=== PATIENT | female | born 1940 | race Caucasian/White ===

== ENCOUNTER 2019-11-22 08:02 | Observation (INO) | payer MEDICARE, MEDICAID ==
[~2019-11-22] VITALS: Ht 167.6 cm; Wt 70.5 kg
--- NOTE | ~2019-11-22 | HEMODYNAMI ---
PATIENT:JETT RAMIREZ MEDICAL RECORD: [id number] : 40 LOCATION:D.MS [id number] ADMISSION DATE: 11/22/19 Generatedon:11/23/201911:22 Patient name: JETT RAMIREZ Patient #: [id number] : 1940 Date of study: 11/23/2019 Page: Of Hemodynamic Procedure Report Patient Data Patient Demographics Procedure consent was obtained First Name: JETT Gender: Female Last Name: ASHLEY : 1940 Middle Initial: BRITTA Age: 79 year(s) Patient #: [id number] Race: SSN: [id number] Additional ID: [id number] Contact details [address]: [address] [place] [address] State: [place] City: [place] Zip code: [address] Past Medical History Allergies: No known allergies Admission Admission Data Admission Date: 11/22/2019 Admission Time: 10:06 Arrival Date: 11/22/2019 Arrival Time: 10:06 Admit Source: Emergency Insurance Payor: Medicaid, department Private health insurance Room #: D.2228 [facility] #: [id number] Height (in.): 65.75 BSA: 1.79 (m2) Height (cm.): 167 BMI: 25.1 (kg/m2) Weight (lbs.): 154.32 Weight (kg.): 70 Lab Results Lab Result Date: 11/23/2019 Lab Result Time: 0:00 Biochemistry Name Units Result Min Max BUN mg/dl 16 --(---*)-- 7 18 Creatinine mg/dl 1.1 --(--*-)-- 0.6 1.3 eGFR ml/min 46 *-(----)-- 90 120 NONAFRICAN CBC Name Units Result Min Max Hemoglobin g/dl 13.1 -*(----)-- 13.5 17.5 Procedure Procedure Types Cath Procedure Diagnostic Procedure C [facility] w/Coronaries Sedation Charges Moderate Sedation up to 15 minutes PCI Procedure Coronary Stent Coronary Stent Initial Hemochron ACT Test Procedure Description Procedure Date Procedure Date: 11/23/2019 Procedure Start Time: 10:49 Procedure End Time: 11:10 Procedure Staff Name Function Andry Owens MD Performing Physician Sudha Doherty RT Monitor Olamide Burns RT Scrub Ankita Reynaga RN Nurse Procedure Data Cath Procedure Fluoroscopy Diagnostic fluoroscopy Total fluoroscopy Time: 4.7 time: 4.7 min min Diagnostic fluoroscopy Total fluoroscopy dose: 717 dose: 717 mGy mGy Contrast Material Contrast Material Type Amount (ml) Isovue 370 107 Entry Location Entry Primary Successful Side Size Upsize Upsize Entry Closure Succes sful Closure Location (Fr) 1 (Fr) 2 (Fr) Remarks Device Remarks Femoral Right 5 Fr 6 Fr Exoseal artery Short Estimated blood loss: 10 ml Diagnostic catheters Device Type Used For End Catheter Placement MULTIPACK JL 4.0 5Fr Procedure catheter MULTIPACK 3DRC 5Fr Procedure catheter MULTIPACK Pigtail 5 Fr Procedure catheter Procedure Complications No complications Procedure Medications Medication Administration Route Dosage Oxygen etCO2 Nasal cannula 2 l/min Lidocaine 2% added to field 20 Heparin Flush Bag added to field 2 bags (1000units/500ml NS) 0.9% NaCl I.V. 100 ml/hr Fentanyl I.V. 50 mcg Fentanyl I.V. 50 mcg Heparin Bolus I.V. 4000 units Integrilin (Bolus I.V. 6.2 ml 2mg/ml) Plavix P.O. 600 mg Hemodynamics Rest BSA: 1.79 (m2) HGB: 13.1 (g/dl) O2 Consumption: Estimated: 165.57 (ml/min) O2 Co nsumption indexed: Estimated:92.5 (ml/min/m) Heart Rate: 76 (bpm) Pressure Samples Time Site Value (mmHg) Purpose Heart Use Rate(bpm) 10:58 LV 140/16,12 Snapshot 85 10:58 AO 159/79(106) Pullback 83 10:58 LV 147/4,20 Pullback 83 Gradients Valve Time Site 1 Site 2 Mean SEP/DFP Peak To Heart Use (mmHg) (sec/min) Peak Rate (mmHg) (bpm) Aortic 10:58 LV AO 0 14 0 83 147/4,20 159/79(106) Calculations Valve P-P Mean Valve Index Valve Source Name Gradient Area Flow (cm2) Aortic 0 0 0 0 Snapshots Pre Cath Intra NCS Post Cath Vital Signs Time Heart Resp SPO2 etCO2 NIBP (mmHg) Rhythm Pain Sedation Rate (ipm) (%) (mmHg) Status Level (bpm) 10:32:30 80 27 96 0 175/87(134) NSR 0 (11) 10(A) , No pain 10:38:17 72 25 97 20.1 170/92(130) NSR 0 (11) 10(A) , No pain 10:42:47 77 20 98 13.4 162/88(130) NSR 0 (11) 10(A) , No pain 10:47:17 78 16 96 14.1 146/78(120) NSR 0 (11) 10(A) , No pain 10:51:42 76 18 94 0 148/78(116) NSR 0 (11) 10(A) , No pain 10:56:06 81 16 92 0 149/76(124) NSR 0 (11) 10(A) , No pain 11:00:38 81 14 94 0 144/71(115) NSR 0 (11) 10(A) , No pain 11:05:11 81 16 95 14.1 153/70(113) NSR 0 (11) 10(A) , No pain 11:09:41 84 27 97 0 137/77(110) NSR 0 (11) 10(A) , No pain Medications Time Medication Route Dose Verified Delivered Reason Notes Effectiveness by by 10:40:02 Oxygen etCO2 2 Andry Luciano used for Nasal l/min St Min Reynaga RN procedure cannula 10:40:09 Lidocaine 2% added 20ml Andry Wilde for local to vial [facility] anesthetic field MD THOMAS 10:40:15 Heparin Flush added 2 Andry Wilde used for Bag to bags [facility] procedure (1000units/500ml field MD THOMAS NS) 10:40:23 0.9% NaCl I.V. 100 Andry Luciano Per physician ml/hr St Min Reynaga RN, MD 10:43:49 Fentanyl I.V. 50 Andry Hardinie for sedation mcg St Min Reynaga RN, MD 10:54:12 Fentanyl I.V. 50 Andry Luciano for sedation mcg St Min Reynaga RN, MD 10:59:29 Heparin Bolus I.V. 4000 Andry Luciano for verif ied units St Min Reynaga RN anticoagulation with dr MD finch 11:01:42 Integrilin I.V. 6.2 Andry Luciano for Waste d (Bolus 2mg/ml) ml St Min Reynaga RN antiplatelet 3.8 ml therapy of vial 11:14:16 Plavix P.O. [address] for mg St Min Reynaga RN antiplatelet therapy Procedure Log Time Note 9:45:52 Diagnostic Cath Status : Urgent 9:46:09 Olamide Burns RT(R) sent for patient. Start room use. 9:46:11 Time tracking: Regular hours (M-F 7:00 - 5:00) 9:46:16 Plan of Care:Hemodynamics will remain stable., Cardiac rhythm will remain stable., Comfort level will be maintained., Respiratory function will remain adequate., Patient/ family verbilizes understanding of procedure., Procedure tolerated without complication., Recovers from procedure without complications.. 9:59:54 Informed consent obtained and on chart 10:00:32 Lab Result : Hemoglobin 13.1 g/dl 10:00:32 Lab Result : eGFR NONAFRICAN 46 ml/min 10:00:32 Lab Result : BUN 16 mg/dl 10:00:32 Lab Result : Creatinine 1.1 mg/dl 10:15:21 Arrival Date: 11/22/2019 10:06:00 AM 10:15:35 Admit Source: Emergency department 10:15:39 Insurance Payor : Private health insurance, Medicaid 10:15:48 Patient Height : 65.75 inches 10:15:52 Patient Weight : 154.32 lbs 10:17:59 Patient received from Med/Surg to CCL 1 Alert and oriented. Tansferred to table in Supine position. 10:18:00 Warm blankets applied, and jade hugger turned on for patient comfort. 10:18:00 Correct patient and procedure confirmed by team. 10:18:01 Correct patient and procedure confirmed by team. 10:18:02 ECG and BP/O2 sat monitors applied to patient. 10:28:59 Vital chart was started 10:29:00 Full Disclosure recording started 10:29:19 H&P Date Dictated: 11/22/2019 Within 30 days and on chart.. 10:29:21 Pre-procedure instructions explained to patient. 10:29:21 Pre-op teaching completed and patient verbalized understanding. 10:29:23 Family unavailable. 10:29:26 Patient NPO since Midnight. 10:29:39 Patient allergic to No known allergies 10:29:59 Is the patient allergic to Iodine/contrast media? No. 10:30:05 Was the patient premedicated? Yes 10:30:07 Is patient on blood thinner?No 10:30:09 Patient diabetic? Yes. 10:30:11 If diabetic: On Metformin? No 10:30:15 Patient not . Patient is over age 55. 10:30:16 ----Pre-sedation anethsthesia assessment.---- 10:30:19 Previous problem with sedation/anesthesia? No ? 10:30:20 Snore? Yes 10:30:21 Sleep apnea? No 10:30:23 Deviated septum? No 10:30:24 Opens mouth fully? Yes 10:30:25 Sticks out tongue? Yes 10:30:30 Airway obstruction? Yes copd, asthma 10:30:52 Dentures? No ? 10:30:56 Pre procedure: right dorsailis pedis pulse 1+ Palpable, but thready & weak; easily obliterated 10:30:59 Patient pain scale 0/10 ?. 10:31:11 Rhythm: sinus rhythm 10:31:13 Baseline sample Acquired. 10:31:24 IV patent on arrival in left antecubital with 0.9% NaCl at [facility]. 10:31:28 Lab results completed and on chart. 10:31:32 Stress Test: no; N/A ? 10:31:35 Risk of Mortality: 0.2 10:31:38 Risk of blood transfusion: 2.0 10:31:41 Risk of RAFFAELE: 2.0 10:31:45 Right groin area was prepped with chlora-prep and draped in sterile fashion 10:31:47 Alarms reviewed by R. N. 10:31:48 Sharps counted by scrub and verified by R.N. 10:33:57 Use device set Femoral Dx 10:33:59 ACIST Syringe (48553) opened to sterile field. 10:34:00 Bag Decanter (2002) opened to sterile field. 10:34:01 ACIST Hand Control (14523) opened to sterile field. 10:34:02 ACIST Manifold (58375) opened to sterile field. 10:34:02 DIAGNOSTIC Multipack 5Fr catheter set ([id number]) opened to sterile field. 10:34:04 SHEATH 5FR [place] (LYC799) opened to sterile field. 10:34:04 EMERALD Guide Wire (431-620) opened to sterile field. 10:34:05 Medline Cath Pack ([id number]) opened to sterile field. 10:40:02 Oxygen 2 l/min etCO2 Nasal cannula was administered by Ankita Reynaga RN; used for procedure; Verbal order read back and verified. 10:40:09 Lidocaine 2% 20ml vial added to field was administered by Andry Owens MD; for local anesthetic; Verbal order read back and verified. 10:40:15 Heparin Flush Bag (1000units/500ml NS) 2 bags added to field was administered by Andry Owens MD; used for procedure; Verbal order read back and verified. 10:40:23 0.9% NaCl 100 ml/hr I.V. was administered by Ankita Reynaag RN; Per physician; Verbal order read back and verified. 10:42:35 --------ALL STOP TIME OUT------ 10:42:35 Final Timeout: patient, procedure, and site verified with staff and physician. All members of the team are in agreement. 10:42:37 Right groin site verified by team. 10:42:40 Fire Safety Assessment: A--An alcohol-based skin anteseptic being used preoperatively., C--Open oxygen or nitrous oxide is being used., D--An ESU, laser, or fiber-optic light is being used. 10:42:43 Physical assessment completed. ASA score P 2 - A patient with mild systemic disease as per Andry Owens MD. 10:43:03 3a) 45-59 Moderately reduced kidney function. 10:43:08 Maximum allowable contrast dose (3.7 X eGFR X 0.75)127 ml. 10:43:12 Sedation plan: IV Moderate Sedation Medication:Versed, Fentanyl 10:43:49 Fentanyl 50 mcg I.V. was administered by Ankita Reynaga RN; for sedation; Verbal order read back and verified. 10:44:01 Attempted to contact pts sonDon at the phone number listed on facesheet and recording states "not a working number". 10:49:40 Procedure started. 10:49:47 Local anesthetic to right femoral artery with Lidocaine 2% by Andry Owens MD.INITIAL ACCESS ONLY 10:50:55 A 5 Fr sheath was inserted into the Right Femoral artery 10:51:47 A MULTIPACK JL 4.0 5Fr catheter was advanced over the wire and used for Procedure. 10:52:03 LCA angiography performed. 10:52:08 Injector settings: Ml/sec: 3, Volume: 6, 10:53:13 Catheter removed. 10:53:40 A MULTIPACK 3DRC 5Fr catheter was advanced over the wire and used for Procedure. 10:53:45 RCA angiography performed. 10:53:48 Injector settings: Ml/sec: 3, Volume: 6, 10:54:12 Fentanyl 50 mcg I.V. was administered by Ankita Reynaga RN; for sedation; Verbal order read back and verified. 10:54:18 ACCDominant side:Right 10:54:19 unable to engage carotids.. 10:57:03 Catheter removed. 10:57:51 A MULTIPACK Pigtail 5 Fr catheter was advanced over the wire and used for Procedure. 10:58:25 LV hemodynamics recorded. 10:58:28 LV gram done using AMBROSIO 10:58:30 Injector settings: Ml/sec: 5, Volume: 15, 10:58:35 EF : 55 % 10:58:40 Catheter removed. 10:58:45 Proceeding to intervention. 10:59:[address] LEÓN PCI 10:59:26 SHEATH 6FR [place] ([id number]) opened to sterile field. 10:59:29 Heparin Bolus 4000 units I.V. was administered by Ankita Reynaga RN; for anticoagulation; verified with dr finch Verbal order read back and verified. 10:59:33 Sheath upsized to a 6 Fr Short. 10:59:37 INFLATOR Merit BasixCompak (FA1803) opened to sterile field. 10:59:40 WHISPER 300cm guide wire ([id number]) opened to sterile field. 11:00:55 GUIDE 6FR XBLAD 3.5 catheter ([id number]) opened to sterile field. 11:01:00 6 Fr xblad 3.5 guide catheter was inserted over the wire 11:01:42 Integrilin (Bolus 2mg/ml) 6.2 ml I.V. was administered by Ankita Reynaga RN; for antiplatelet therapy; Wasted 3.8 ml of vial Verbal order read back and verified. 11:02:09 Pre PCI Site: [place] [facility] has 80% stenosis. 11:02:20 whisper 300 wire advanced. 11:05:40 Place stent Inflation Number: 1 A INTEGRITY RX 3.0 x 15 stent ([id number]) was prepped and advanced across the Mid CX 80. The stent was deployed at 14 KAMALA for 0:00 (min:sec) . 11:06:28 EXOSEAL 6Fr (EX600) opened to sterile field. 11:06:39 Stent catheter was removed intact over wire. 11:06:39 Wire removed. 11:06:40 Guide catheter removed. 11:07:18 Sheath removed intact; hemostasis achieved with Exoseal to the Right Femoral artery. 11:07:25 Fluoroscopy time 04.70 minutes. 11:07:27 Procedure ended.(Physican Out) 11:07:35 Fluoroscopy dose: 717 mGy 11:07:35 Flurop Dose total: 717 11:07:41 Dose Area Product 28733 mGy/cm. 11:07:45 Contrast amount:Isovue 370 107ml. 11:07:48 Maximum allowable dose exceeded? No. 11:07:49 Sharps counted by scrub and verified by R.N. 11:07:56 Post-op/insertion site Right Femoral artery dressed using a 4 x 4 and Tegaderm. 11:08:00 Post right femoral artery:stable, soft, clean and dry 11:08:02 Post Procedure Pulses reassessed and unchanged 11:08:05 Post procedure: right dorsailis pedis pulse 1+ Palpable, but thready & weak; easily obliterated. 11:08:08 Post-procedure physical assessment completed. ASA score P 2 - A patient with mild systemic disease as per Andry Owens MD. 11:08:13 Post procedure rhythm: unchanged. 11:08:16 Estimated blood loss: 10 ml 11:08:17 Post procedure instruction explained to patient.Patient verbalizes understanding. 11:08:17 Patient needs reinforcement of post procedure teaching. 11:09:23 Procedure type changed to Cath procedure, Diagnostic procedure, LHC, LHC w/Coronaries, Sedation Charges, Moderate Sedation up to 15 minutes, PCI procedure, Coronary Stent, Coronary Stent Initial, Hemochron ACT Test 11:09:23 Sharps counted by scrub and verified by R.N. 11:09:31 Procedure and supply charges have been captured, reviewed, submitted and are correct. 11::35 Procedure Complication : No complications 11:09:37 Vital chart was stopped 11:09:40 [facility] Findings: MVD- PCI performed (see procedure note) 11::44 Operative report dictated upon procedure completion. 11::44 See physician's report for complete and final results. 11::48 Report given to [facility]. 11::52 Patient transfered to [facility] with Bed. 11:10:10 ACC-PCI Only Patient was given prescriptions, or instructed by Andry Owens MD to start/continue the following medications upon discharge: Plavix 11::39 Procedure ended. 11::39 Full Disclosure recording stopped 11:14:16 Plavix 600 mg P.O. was administered by Ankita Reynaga RN; for antiplatelet therapy; Verbal order read back and verified. 11:14:35 ACT drawn and resulted at 262 seconds. (normal therapeutic range 180-240 seconds). 11:15:52 Femstop placed over the right femoral artery at 138 mmHg. Hemostasis achieved. 11:20:11 End room use (Document Last) 11:21:58 End room use (Document Last) 11:22:17 End room use (Document Last) Intervention Summary Intervention Notes Time ActionType Lesion and Equipment Action# Pressure Duration Attributes Used 11:05:40 Place stent Mid CX INTEGRITY RX 1 14 00:00 3.0 x 15 stent ([id number]) Device Usage Item Name Manufacture Quantity Catalog Hospital Part Current Minimal Lot# / Number Charge Number Stock Stock Serial# Code ACIST Acist 1 32644 091043 502543 369922 20 Syringe Medical (51125) Systems Inc Bag Decanter Microtek 1 2001S 477989 61991 019937 5 () Medical Inc. ACIST Hand Acist 1 81327 111769 020582 002807 5 Control Medical (56876) Systems Inc ACIST Acist 1 11628 781322 598875 182032 5 Manifold Medical (52374) Systems Inc DIAGNOSTIC Cardinal 1 NE7910 222788 65604 919086 30 [facility] Health 5Fr catheter set (YX8033) SHEATH 5FR Terumo 1 LNK590 392232 255734 888054 5 [place] (XLX780) EMERALD Cardinal 1 502-455 832459 509055 616928 5 Guide Wire Health (502-455) MULTIPACK JL Cardinal 1 923803 5 4.0 5Fr Health catheter Medline Cath Medline 1 [id number] 373892 68188 818615 5 Pack ([id number]) MULTIPACK Cardinal 1 098900 5 3DRC 5Fr Health catheter MULTIPACK Cardinal 1 968303 5 Pigtail 5 Fr Health catheter SHEATH 6FR Terumo 1 DAD621 675907 897252 228411 40 [place] (LXX745) INFLATOR Merit 1 SN0438 765193 120928 650499 15 Merit Medical BasixCompak (WT8697) WHISPER Ramirez 1 [id number] 529955 350356 253567 5 300cm guide Vascular wire ([id number]) GUIDE 6FR Cardinal 1 [id number] 460341 585508 458968 10 XBLAD 3.5 Health catheter (81655004) INTEGRITY RX Medtronic 1 [id number] 288675 790610 070349 5 [id number] 3.0 x 15 stent ([id number]) EXOSEAL 6Fr Cardinal 1 EX600 185590 853096 077332 10 (EX600) Health Signature Audit [place] Stage Time Signature Unsigned Intra-Procedure 11/23/2019 Sudha Doherty 11:21:58 AM RT(R) Intra-Procedure 11/23/2019 Ankita Reynaga RN 11:22:17 AM Intra-Procedure 11/23/2019 Andry Greene 11:22:34 AM Min TH[place]AS [place] [address] [id number] [place] [place] [address]
[~2019-11-22 08:02] MED LIST: AUGMENTIN 875-11 TAB PO; BONIVA150 MG PO; BUMEX2 MG PO; CLARITIN 10 MG10 MG PO; FOLIC ACID1 MG PO; HUMULIN N100 U/ML SC; ISOSORBIDE MONO30 M1 PO; LOPID600 MG PO; LOW DOSE ASPIRI81 M1 PO; SYNTHROID100 MCG PO
[2019-11-22] MEDS ORDERED: ASPIRIN81 MG PO (08:09)
[2019-11-22] MEDS ORDERED: LIPITOR10 MG PO (08:09)
[2019-11-22] MEDS ORDERED: LISINOPRIL10 MG PO (08:10)
[2019-11-22] MEDS ORDERED: CLARITIN 10 MG10 MG PO (08:10)
[2019-11-22] MEDS ORDERED: K-TAB10 MEQ PO (08:10)
[2019-11-22 08:30] LABS: CALC OSMOLALITY 284 mosm/kg (275-300); CALCIUM 8.8 mg/dL (8.5-10.1); CARBON DIOXIDE 26.7 mmol/L (21.0-32.0); CHLORIDE - SERUM 104 mmol/L (98-107); CREATININE - SERUM 1.2 mg/dL (0.6-1.3); GLUCOSE 146 mg/dL (74-106); POTASSIUM - SERUM 3.8 mmol/L (3.5-5.1); SODIUM 140 mmol/L (136-145); UREA NITROGEN 20 mg/dL (7-18); eGFR NON AFRICAN AMERICAN 46 mL/min (90-120)
[2019-11-22 08:37] LABS: BASOPHILS 0.2 % (0-2); EOSINOPHILS 2.8 % (0-7); HEMATOCRIT 41.9 % (36.0-48.0); HEMOGLOBIN 13.5 g/dL (12-16); IMMATURE GRANULOCYTES 0.2 % (0-5); LYMPHOCYTES 23.5 % (15-50); MCH 30.9 pg (26.0-34.0); MCHC 32.2 g/dL (31.0-37.0); MCV 95.9 fL (80.0-100.0); MEAN PLATELET VOLUME 11.6 fL (7.4-10.4); MONOCYTES 8.7 % (2-11); NEUTROPHILS 64.6 % (40-80); RBC 4.37 10x6/uL (4.00-5.40); RDW 14.6 % (11.5-14.5)
[2019-11-22 08:47] LABS: ALBUMIN 3.5 g/dL (3.4-5.0); ALKALINE PHOSPHATASE 100 U/L (30-120); ALT (SGPT) 16 U/L (10-68); BILIRUBIN - TOTAL 0.75 mg/dL (0.2-1.3); CKMB 2.7 U/L (0.0-3.6); CREATINE KINASE 114 UL (21-215); PRO BNP 223 pg/mL (0-450); PROTEIN - SERUM 7.3 g/dL (6.4-8.2); TROPONIN-I < 0.017 ng/mL (0.000-0.060)
[2019-11-22 08:50] LABS: APTT 24.9 SECONDS (22.8-39.4); INR 1.06 (0.85-1.17); PROTIME 13.7 SECONDS (11.6-15.0)
[2019-11-22 08:52] LABS: PLATELET COUNT 118 10x3/uL (130-400)
[2019-11-22 09:00] VITALS: BP 166/69
--- NOTE | 2019-11-22 09:05 | NUR ---
RIGHT HAND SKIN TEAR AND RIGHT GREAT TOE ABRASIONS ALL CLEANSED WITH WOUND CLEANSER AND DRY DRSGS APPLIED.
--- NOTE | 2019-11-22 09:10 | NUR ---
[PT ALSO HAS BRUISE TO TOP OF SCALP/SKIN INTACT AND ABRASION TO LEFT KNEE
[2019-11-22 09:13] LABS: BACTERIA FEW /hpf (NEGATIVE); BILIRUBIN NEGATIVE (NEGATIVE); EPITHELIAL CELLS 0-5 /hpf (0-5); GLUCOSE 50 mg/dL (NEGATIVE); KETONE NEGATIVE (NEGATIVE); NITRITE NEGATIVE (NEGATIVE); RED CELLS - URINE RARE /hpf (0-5); SPECIFIC GRAVITY 1.015 (1.005-1.020); WHITE CELLS - URINE 0-5 /hpf (NEGATIVE)
--- NOTE | 2019-11-22 09:19 | NUR ---
ASSISTED UP TO BSC. NOTED ABRASION TO LEFT KNEE AND LEFT 5TH TOE
--- NOTE | 2019-11-22 09:35 | NUR ---
OJ GIVEN AND MEAL TRAY ORDERED FROM DIETARY
--- NOTE | 2019-11-22 09:35 | NUR ---
FSBS= 67 MG/DL
--- NOTE | 2019-11-22 09:58 | NUR ---
ADA BREAKFAST TRAY SERVED. APPETITE GOOD
--- NOTE | 2019-11-22 11:24 | NUR ---
REPORT TO CANDICE ZAMORA
[2019-11-22 11:33] LABS: CKMB 3.4 U/L (0.0-3.6); CREATINE KINASE 192 UL (21-215)
--- NOTE | 2019-11-22 11:52 | NUR ---
RECEIVED PATIENT FROM ER, TRANSFERED TO BED, YELLOW GOWN, SOCKS AND YELLOW STAR ON DOOR. PT HAS IN IV TO THE LEFT HAND, DEXTROSE RUNNING AT 100. RESTING COMFORTABLY IN BED. PRESSURE TESTER OPERATOR OBTAINING FIRST VITALS. DENIES ANY OTHER NEEDS. WILL CONTINUE TO MONITOR.
--- NOTE | 2019-11-22 11:59 | NUR ---
PT HOME MEDICATIONS SECURED IN ED PYXIS. ENVELOPE NUMBER [id number],
[2019-11-22 12:00] VITALS: BP 179/72
[2019-11-22 13:22] VITALS: BMI 28.2
--- NOTE | 2019-11-22 14:38 | NUR ---
I have reviewed this patient and I concur with the Shift Assessment completed by the Licensed Practical Nurse today this shift.
--- NOTE | 2019-11-22 15:21 | NUR ---
PROVIDED PT WITH SCD'S AND INCINTIVE SPIROMETER. AIDE PLACED TELEMETRY ON PT PER ORDER. RESTING IN BED. DENIES ANY NEEDS. WILL CONTINUE TO MONITOR.
[2019-11-22 15:40] VITALS: BP 179/72; Ht 167.6 cm; Wt 70.5 kg
[2019-11-22 16:00] VITALS: BP 185/75
--- NOTE | 2019-11-22 17:01 | NUR ---
GAVE 4 UNITS INSULINE PER SLIDING SCALE FOR BLOOD SUGAR READING OF 175. ADMINISTERED IN LEFT ARM. PT IS RESTING COMFORTABLY IN BED. DENIES ANY NEEDS AT THIS TIME. WILL CONTINUE TO MONITOR.
[2019-11-22 17:24] LABS: CKMB 5.2 U/L (0.0-3.6); CREATINE KINASE 239 UL (21-215)
[2019-11-22 17:37] LABS: TROPONIN-I 0.164 ng/mL (0.000-0.060)
--- NOTE | 2019-11-22 17:38 | NUR ---
PT RESTING COMFORTABLY IN BED. DENIES ANY NEEDS. CALL LIGHT WITHIN REACH. WILL CONTINUE TO MONITOR.
--- NOTE | 2019-11-22 18:03 | NUR ---
ASSISTED PT TO BEDSIDE COMMODE AND BACK TO BED. AMBULATED WELL. FRESH SHEETS PUT ON BED. RESTING COMFORTABLY. DENIES ANY NEEDS. WILL CONTINUE TO MONITOR.
[2019-11-22 20:00] VITALS: BP 153/69
[2019-11-22 23:31] LABS: CKMB 5.7 U/L (0.0-3.6); CREATINE KINASE 265 UL (21-215)
[2019-11-22 23:32] LABS: TROPONIN-I 0.122 ng/mL (0.000-0.060)
[2019-11-23] VITALS: BP 159/58
[2019-11-23 04:00] VITALS: BP 134/62
[2019-11-23 06:57] LABS: BASOPHILS 0.2 % (0-2); EOSINOPHILS 3.7 % (0-7); HEMATOCRIT 40.4 % (36.0-48.0); HEMOGLOBIN 13.1 g/dL (12-16); IMMATURE GRANULOCYTES 0.3 % (0-5); LYMPHOCYTES 24.2 % (15-50); MCH 30.8 pg (26.0-34.0); MCHC 32.4 g/dL (31.0-37.0); MCV 95.1 fL (80.0-100.0); MEAN PLATELET VOLUME 12.4 fL (7.4-10.4); MONOCYTES 11.6 % (2-11); PLATELET COUNT 133 10x3/uL (130-400); RBC 4.25 10x6/uL (4.00-5.40); RDW 14.6 % (11.5-14.5); WBC 6.2 10x3/uL (4.8-10.8)
[2019-11-23 07:25] LABS: ANION GAP 13.1 mmol/L (8-16); BILIRUBIN - TOTAL 0.77 mg/dL (0.2-1.3); CALCIUM 8.1 mg/dL (8.5-10.1); CARBON DIOXIDE 24.1 mmol/L (21.0-32.0); CREATININE - SERUM 1.1 mg/dL (0.6-1.3); MAGNESIUM - SERUM 1.9 mg/dL (1.8-2.4); POTASSIUM - SERUM 4.2 mmol/L (3.5-5.1); PROTEIN - SERUM 6.7 g/dL (6.4-8.2)
[2019-11-23 07:30] LABS: TROPONIN-I 0.084 ng/mL (0.000-0.060)
[2019-11-23 08:28] VITALS: BP 178/54
[2019-11-23 09:07] LABS: CALCIUM 8.4 mg/dL (8.5-10.1); CARBON DIOXIDE 25.3 mmol/L (21.0-32.0); CHOL - HDL RATIO 2.5 ratio (2.3-4.1); CREATININE - SERUM 1.2 mg/dL (0.6-1.3); POTASSIUM - SERUM 4.3 mmol/L (3.5-5.1)
--- NOTE | 2019-11-23 10:00 | NUR ---
ALERT AND ORIENTED X4 WITH TELEMETRY AND DENIES ANY CHEST PAIN OR DISCOMFORT. LUNGS CTA AND HRRR WITH ABDOMEN SOFT WITH BOWEL SOUNDS NOTED. SCD'S ON WITH MEDICATIONS AND PREOP MEDS GIVEN WITH SIPS OF WATER. CARDIAC TEAM HERE AND TAKING PATINET FOR PROCEDURE. PATIENT WILL BE TRANSFERED TO 0 POST PROCEDURE.
--- NOTE | 2019-11-23 11:50 | NUR ---
RECEIVED PT TO ROOM 2119 VIA BED. PT STILL DROWY BUT EASILY AROUSES TO VOICE. RT GROIN DRESSING CDI, FEMSTOP IN PLACE. PULSES PALPABLE. NO S/S OF BLEEDING OR HEMATOMA. PT DENIES ANY NEEDS AT THIS TIME. CALL LIGHT IN REACH, NAD NOTED, WILL CONTINUE TO MONIITOR.
--- NOTE | 2019-11-23 12:57 | NUR ---
NO CHANGES TO RT GROIN FROM PREVIOUS ASSESSMENT. PT RESTING COMFORTABLY IN BED. NAD NOTED.
--- NOTE | 2019-11-23 19:15 | NUR ---
RECEIVED REPORT, WILL ASSUME CARE OF PT, ASSIST WITH BEDPAN, DENIES ANY OTHER NEEDS AT THIS TIME, MADHAV CDI, BED IS LOW, SRX2, CALL LIGHT IN REACH, WILL CONTINUE PLAN OF CARE
[2019-11-23 20:00] VITALS: BP 145/75
[2019-11-24] VITALS: BP 155/65
[2019-11-24 00:01] VITALS: BP 155/65
[2019-11-24 04:00] VITALS: BP 135/56
[2019-11-24 05:35] LABS: BASOPHILS 0.1 % (0-2); EOSINOPHILS 2.4 % (0-7); HEMATOCRIT 36.5 % (36.0-48.0); HEMOGLOBIN 11.8 g/dL (12-16); IMMATURE GRANULOCYTES 0.2 % (0-5); MCH 30.9 pg (26.0-34.0); MCHC 32.3 g/dL (31.0-37.0); MCV 95.5 fL (80.0-100.0); MONOCYTES 9.8 % (2-11); NEUTROPHILS 64.5 % (40-80); RBC 3.82 10x6/uL (4.00-5.40)
[2019-11-24 05:37] LABS: PLATELET COUNT 194 10x3/uL (130-400); WBC 8.8 10x3/uL (4.8-10.8)
[2019-11-24 06:21] LABS: ANION GAP 12.3 mmol/L (8-16); BILIRUBIN - TOTAL 0.99 mg/dL (0.2-1.3); CALCIUM 8.3 mg/dL (8.5-10.1); CARBON DIOXIDE 24.9 mmol/L (21.0-32.0); CREATININE - SERUM 1.3 mg/dL (0.6-1.3); POTASSIUM - SERUM 4.2 mmol/L (3.5-5.1); PROTEIN - SERUM 6.5 g/dL (6.4-8.2)
--- NOTE | 2019-11-24 07:00 | NUR ---
RECEIVED REPORT. ASSUMED CARE OF PATIENT. RESTING IN BED WITH EYES CLOSED. RESP EVEN AND UNLABORED. NO DISTRESS. CALL LIGHT WITHIN REACH. SR ON TELEMETRY, RATE 62. BEDSIDE SHIFT REPORT COMPLETE, WHITE BOARD UPDATED.
[2019-11-24 08:45] VITALS: BP 160/66
--- NOTE | 2019-11-24 08:56 | CN ---
PATIENT NAME:JETT RAMIREZ MEDICAL RECORD: [id number] : 40 LOCATION:D. D.2120 ADMIT DATE: 11/22/19 ACCOUNT: [id number] CONSULTING PHYSICIAN: MANOLO DIAS MD REFERRING PHYSICIAN: SUMIT BOWENS DO DATE OF CONSULTATION: 11/23/2019 HISTORY OF PRESENT ILLNESS: A 79-year-old female with a history of diabetes mellitus, hypertension, CVA in the past, has history of coronary artery disease, status post stenting, has been having more chest tightness and pressure with exertion, progression with rest symptomology over the past couple of days. Last night, had a syncopal episode, accompanied by visual changes consistent with amaurosis. Also, found to be hypoglycemic. We are asked to see her concerning her cardiovascular status. PAST MEDICAL HISTORY: Includes; 1. History of hypertension. 2. Coronary artery disease as described above. 3. Dyslipidemia. 4. Diabetes mellitus. 5. Hypothyroidism, on replacement. 6. Gastroesophageal reflux disease. ALLERGIES: None known. MEDICATIONS: Include Claritin 10 mg p.o. every day, Lipitor 10 mg p.o. every day, Lopid 600 b.i.d., Imdur 30 every day, lisinopril 10 every day, aspirin 81 every day, Bumex 2 mg every day, potassium 10 mEq b.i.d., insulin per scale, Synthroid 100 mcg every day. SOCIAL HISTORY: Lives in [facility], nonsmoker. Easily able to take care of all ADLs. Does try to walk the halls on regular basis for exercise. REVIEW OF SYSTEMS: The patient reports easy bruising but reports no swollen glands. The patient reports no fever, no night sweats, no significant weight gain, no significant weight loss. No significant exercise tolerance. The patient reports no dry eyes, no irritation, no vision change. Patient reports no difficulty hearing and no ear pain. Patient reports no frequent nose bleeds or nose and sinus problems. Patient reports on arm pain on exertion. No shortness of breath while lying down. No history of heart murmur. Patient reports no cough, no wheezing or coughing up blood. Patient reports no abdominal pain, no vomiting. Normal appetite. No diarrhea and not vomiting blood. No nausea and no constipation. Patient reports no incontinence. No difficulty urinating. No hematuria. No increased frequency. Patient reports no muscle aches. No weakness, no arthralgias, no back pain. No swelling of the extremities. Patient reports no abnormal mole, no jaundice, no rashes. Reports no loss of consciousness. No weakness and no numbness. No seizures, dizziness, or headaches. The patient reports no depression, no sleep disturbance, feeling safe in a relationship and no alcohol abuse. Patient reports on fatigue. Reports no runny nose or sinus pressure. No itching, no hives, and no frequent sneezing. PHYSICAL EXAMINATION: GENERAL: Pleasant female in no acute distress, appears stated age. VITAL SIGNS: Blood pressure 178/54, pulse 64 and regular. CONSULT REPORT [id number] SANDRAEUSEBIOJETT BRITTA HEENT: Normocephalic, atraumatic. NECK: No JVD or bruit. HEART: Regular, II/ systolic ejection murmur. LUNGS: Fairly good air excursion. ABDOMEN: Soft, nontender. EXTREMITIES: Pulses are preserved, 1+. There is no edema. IMPRESSION: Syncope associated with non-ST segment elevation myocardial infarction, amaurosis type symptomatology. PLAN: At this point in time we will plan for angiography, 4-vessel arteriography and intervention based on above. TRANSINT:[id number] Voice Confirmation ID: [id number] DOCUMENT ID: [id number] MANOLO DIAS MD at 0856 CC: [id number] DICTATION DATE: 11/23/19 0850 JAPANESE PROFESSOR: 11/23/19 1405 ADM IN [place] [id number] [place] [address]
--- NOTE | 2019-11-24 09:52 | NUR ---
PATIENT AMBULATED 250 FT WITH PT. TOLERATED PT WELL. PATIENT NOW SITTING TO CHAIR AT BEDSIDE. NO DISTRESS.
--- NOTE | 2019-11-24 11:26 | NUR ---
FSBS 151. PATIENT REFUSED INSULIN AT THIS TIME. RESTING IN BED WITH EYES OPEN. PATIENT COMPLAIN TV NOT WORKING WITH CURRENT REMOTE. ATTEMPTED TO FIX, UNABLE. WORK ORDER SUBMITTED.
[2019-11-24 12:16] VITALS: BP 109/55
[2019-11-24] MEDS ORDERED: PLAVIX75 MG PO (14:53)
--- NOTE | 2019-11-24 14:54 | NUR ---
PATIENTS DAUGHTER IN LAW HOPE HOLT CALLED TO CHECK ON HER. PERMISSION FROM PATIENT RECEIVED TO SPEAK WITH HOPE SHAORN TO HER CARE. HOPE STATES THAT PATIENT CALLED AND TOLD HER THAT SHE WOULD BE COMING HOME TODAY AND WOULD LIKE TO KNOW WHAT TIME TO PICK THE PATIENT UP. AT TIME OF CALL, THIS FLYING TEACHER HAD NOT YET RECEIVED D/C ORDERS BUT TOOK HOPE'S PHONE NUMBER AND WILL CALL HER WHEN THE PATIENT IS READY IF SHE IS DISCHARGED TO HOME TODAY.
--- NOTE | 2019-11-24 15:03 | MORECARE ---
CASE MANAGEMENT DISCHARGE SUMMARY PATIENT: JETT RAMIREZ UNIT: [id number] ADM DATE: 11/22/19 AGE: 79 : 40 SEX: F ROOM/BED: D.7315 AUTHOR: MIRELA DAVISON PHYSICIAN: REFERRING PHYSICIAN: SUMIT BOWENS DO DATE OF SERVICE: 11/24/19 Discharge Plan Patient Name: JETT RAMIREZ Facility: [facility]:[place] : 1940 Planned Disposition: Home Anticipated Discharge Date: 11/24/19 Discharge Date: Expected LOS: 2 Initial Reviewer: [id number] Initial Review Date: 11/24/2019 Generated: 11/24/19 4:02 pm Comments DCP- Discharge Planning Updated by [email or web address]: Lillian Paredes on 11/24/19 2:[address] Patient Name: JETT RAMIREZ Encounter No: [id number] : 1940 Primary Insurance: CARE IMPROVEMENT PLUS [facility] Anticipated DC Date: 11-24-2019 Planned Disposition: Home External Planned Provider: : DCP follow-up note: Patient in agreement with discharge plan. No changes to plan. Nurse states she is walking 250 feet without assistance. Case management will follow and assist as needed. Lillian Paredes DCP- Discharge Planning Updated by [id number]: Lillian Paredes on 11/23/19 8:[address] CM met with patient, Singer explained and signed. She is going to have a heart cath today. States she has had them before with stents. She is alert and oriented. States she lives at [facility]. States her DC plan is to return home. States her son will take her home. States she is independent, but does not drive. States her son takes her where she needs to go. CM will continue to follow and assist with discharge planning/needs. External Providers External Provider: [employer] Next Contact Date: Service Request Date: Service Type: Resolution: Reviewer: Comments: Coverage Notice Reviewer: [id number] - Lillian Paredes Notice Issued Date-Time: 11/23/2019 9:20 Notice Type: Medicare Outpatient Observation Notice Notice Delivered To: Patient Relationship to Patient: Self Supervisor Kosher Dietary Service Name: Delivery Method: HAND - Hand Delivered Hortensia Days: Prior Verbal Notification: Recipient Understood Notice: Yes Recipient Signature: Yes Med Rec Note Co-signed by Attending: Coverage Notice Comment: ELVA explained, signed, given, copy placed in MR Patient Name: JETT RAMIREZ Page 24263 at 1503 All edits/amendments must be made on the electronic document DICTATION DATE: 11/24/191501 CLINICAL SPECIALIST: MARILOU 11/24/191501 RPT#: [id number] DC DATE: STATUS: ADM IN [facility] [address] [place] [address] END OF REPORT
--- NOTE | 2019-11-24 16:07 | NUR ---
FSBS 127. NO INSULIN PER SLIDING SCALE.
--- NOTE | 2019-11-24 16:50 | NUR ---
20 GAUGE IV REMOVED FROM LEFT WRIST. CATHETER TIP INTACT. NO BLEEDING FROM SITE. 2X2 GAUZE APPLIED AND SECURED WITH BANDAID. PT TOLERATED IV REMOVAL WELL SHE IS GOING HOME.
--- NOTE | 2019-11-24 17:10 | NUR ---
TELEMETRY REMOVED AND RETURNED TO SUBMARINE CABLE EQUIPMENT TECHNICIAN. DISCHARGE INSTRUCTIONS PROVIDED TO PATIENT. PATIENT VERBALIZED UNDERSTANDING OF ALL INSTRUCTIONS PROVIDED. EDUCATION PROVIDED TO PATIENT TO REDUCE REDNESS UNDER BREAST IF SHE CAN NOT OR REFUSES TO WEAR A BRA. REDNESS NOTED UNDER BILATERAL BREAST, RIGHT WORSE THAN LEFT. CLEANSED, PATTED DRY. AND POWDER APPLIED PRIOR TO GETTING PATIENT DRESSED.
--- NOTE | 2019-11-24 17:18 | NUR ---
PATIENT SITTING TO CHAIR AT BEDSIDE, DRESSED AND CONSUMING PM MEAL. PATIENT AWAITING HER DAUGHTER IN LAW TO PICK HER UP. NO DISTRESS.
--- NOTE | 2019-11-24 18:10 | NUR ---
PATIENT LEFT UNIT VIA WHEELCHAIR AT THIS TIME. PATIENT DISCHARGED TO HOME WITH ALL PERSONAL BELONGINGS. NO DISTRESS UPON LEAVING UNIT.
--- NOTE | 2019-11-25 08:02 | MORECARE ---
CASE MANAGEMENT DISCHARGE SUMMARY PATIENT: JETT RAMIREZ UNIT: [id number] ADM DATE: 11/22/19 AGE: 79 : 40 SEX: F ROOM/BED: D.7367 AUTHOR: MIRELA DAVISON PHYSICIAN: REFERRING PHYSICIAN: SUIMT BOWENS DO DATE OF SERVICE: 11/25/19 Discharge Plan Patient Name: JETT RAMIREZ Facility: [facility]:[place] : 1940 Planned Disposition: Home Anticipated Discharge Date: 11/24/19 Discharge Date: 11/24/2019 Expected LOS: 2 Initial Reviewer: [id number] Initial Review Date: 11/24/2019 Generated: 11/25/19 9:01 am DCP- Discharge Planning Updated by [id number]: Lillian Paredes on 11/24/19 2:[address] Patient Name: JETT RAMIREZ Encounter No: [id number] : 1940 Primary Insurance: CARE IMPROVEMENT PLUS [facility] Anticipated DC Date: 11-24-2019 Planned Disposition: Home External Planned Provider: : DCP follow-up note: Patient in agreement with discharge plan. No changes to plan. Nurse states she is walking 250 feet without assistance. Case management will follow and assist as needed. Lillian Paredes DCP- Discharge Planning Updated by [id number]: Lillian Paredes on 11/23/19 8:[address] CM met with patient, Lucrecia explained and signed. She is going to have a heart cath today. States she has had them before with stents. She is alert and oriented. States she lives at [facility]. States her DC plan is to return home. States her son will take her home. States she is independent, but does not drive. States her son takes her where she needs to go. CM will continue to follow and assist with discharge planning/needs. Coverage Notice Reviewer: [id number] - Lillian Paredes Notice Issued Date-Time: 11/23/2019 9:20 Notice Type: Medicare Outpatient Observation Notice Notice Delivered To: Patient Relationship to Patient: Self Cloth Booker Name: Delivery Method: HAND - Hand Delivered Hortensia Days: Prior Verbal Notification: Recipient Understood Notice: Yes Recipient Signature: Yes Med Rec Note Co-signed by Attending: Coverage Notice Comment: LUCRECIA explained, signed, given, copy placed in MR Last DP export: 11/24/19 2:03 p Patient Name: JETT RAMIREZ Page 56103 at 0802 All edits/amendments must be made on the electronic document DICTATION DATE: 11/25/19 08 CRANE SERVICE TECHNICIAN: MARILOU 11/25/19801 RPT#: [id number] DC DATE:11/24/19 STATUS: DIS IN [facility] [address] [place] [address] END OF REPORT
--- NOTE | 2019-11-25 08:58 | EC ---
PATIENT:JETT RAMIREZ DATE OF SERVICE: 11/22/19 SEX: F MEDICAL RECORD: [id number] DATE OF : 40 LOCATION:D.M2 D.212 AGE OF PATIENT: 79 ADMISSION DATE: 11/22/19 REFERRING PHYSICIAN: INTERPRETING PHYSICIAN: MANOLO DIAS MD ECHOCARDIOGRAM REPORT ECHO CHARGES 4 ECHO COMPLETE Date: 11/23/19 CLINICAL DIAGNOSIS: ELEVATED TR, SYNCOPE AND COLLAPSE ECHOCARDIOGRAPHIC MEASUREMENTS (adult normal given) AC root (d.<3.7cm) 3.2 cm LV Septum d (<1.2 cm> 0.7 cm Valve Excursion 1.6 cm LV Septum (systole) 0.9 cm Left Atria (s.<4.0cm> 4.2 cm LVPW d(<1.2cm) 0.8 cm RV (d.<2.3cm) 2.8 cm LVPW (sytole) 0.9 cm LV diastole(<5.6CM) 4.0 cm MV E-F(>70mm/sec) cm LV systole 3.0 cm LVOT Diameter 1.8 cm MV exc.(>10mm) cm Est.ejection fraction (50-75%) % DOPPLER: LVIT cm/sec A 121 cm/sec E 64 cm/sec LA cm/sec RVSP 30.3 mmHg LVOT 97 cm/sec AOP1/2T m/s Asc. Ao 129 cm/sec RVOT 130 cm/sec RA cm/sec PA 136 cm/sec AV Gradient Peak 6.7 mmHg AV Mean 4.4 mmHg AV Area 2.1 cm MV Gradient Peak 9.4 mmHg MV Mean 3.9 mmHg MV Area cm COMMENTS: Bondactor Machine Operator: Salvador SHAVER Data Architect: 3 Dr. Cage TAPE# PACS Pericardial Effusion N DATE OF SERVICE: Adequate 2D, color flow imaging, spectral Doppler, and M-Mode. No LVH. LV internal dimension is normal. Wall motion is normal. EF is greater than or equal to 55%. Aortic valve is tricuspid. No evidence of stenosis by Doppler interrogation. Left atrium is minimally dilated at 5.2 cm. Mitral valve shows no prolapse. Trace MR. Right-sided chambers are grossly normal. Mild TR. ECHOCARDIOGRAM REPORT [id number] JETT RAMIREZ TRANSINT:[id number] Voice Confirmation ID: [id number] DOCUMENT ID: [id number] MANOLO DIAS MD at 0858 CC: [id number] DICTATION DATE: 11/24/19 1021 CONSTRUCTION CONSULTANT: 11/24/19 1404 DIS IN 11/24/19 [facility] [address] [place] [id number]
--- NOTE | 2019-11-25 08:58 | OP ---
PATIENT NAME: JETT RAMIREZ MEDICAL RECORD: [id number] :40 LOCATION:D.M2 D.2120 ADMISSION DATE:11/22/19 SURGEON: MANOLO DIAS MD DATE OF OPERATION: 11/23/2019 PROCEDURE: Left heart catheterization, selective coronary angiography, right femoral artery approach. CATHETERS: A 5-Kenyan sheath, 5/4 left and right Julian, 5/4 pig. The procedure was well tolerated. The patient returned to pinzon, sheath removed. ExoSeal device placed. FINDINGS: Left ventriculography in 30-degree AMBROSIO view: Normal wall motion. Normal systolic function. CORONARY ANATOMY: LEFT MAIN: Left main is free of disease. LAD: Has an area of calcification right at the takeoff of the septal. In this area, she does have a true 80% discrete area of stenosis. CIRCUMFLEX: There is a small OM, no bigger than the diagnostic catheter about 80% stenosis. RIGHT CORONARY ARTERY: Dominant artery, gives rise to the PDA, free of disease. IMPRESSION: Intervention of the left anterior descending. PLAN: Medical management of the OM. DESCRIPTION OF PROCEDURE: A 5-Kenyan sheath was exchanged for a 6-Kenyan sheath. A XB LAD guiding catheter provided excellent guide catheter support followed by a 300 cm Whisper wire was placed across the tightly occluded LAD down to distal portion of the vessel. Stent deployed was a 3.0 x 15 mm Integrity nondrug eluting stent up to 14 atmospheres. Final angiography shows excellent resolution of 80% stenosis, no significant residual. RAKEL flow was 3 throughout the procedure. Heparin and Integrilin was used during the case, loaded in lab. Given her amaurosis symptomology and syncope, we were unable to engage the carotid artery secondary to tortuosity, consider CTA of the carotids after contrast washout. TRANSINT:[id number] Voice Confirmation ID: [id number] DOCUMENT ID: [id number] MANOLO DIAS MD at 0858 CC: [id number] DICTATION DATE: 11/23/19 1127 FIELD PRODUCER: 11/23/19 1635 DIS IN 11/24/19 [place] [id number] [place] [address]
== END 2019-11-24 18:15 | disposition home or self-care (01) ==
LOC: D.ER 08:02 → D.MS 10:06 → OBSVTIME 10:06 → D.MS 10:06 → D.M2 11-23 11:36
PROVIDERS: Family Medicine; Internal Medicine Interventional Cardiology; ADMIT Family Medicine; ATTEND Family Medicine
DX: I21.4 Non-ST elevation (NSTEMI) myocardial infarction (principal); R55 Syncope and collapse; E11.9 Type 2 diabetes mellitus without complications; I10 Essential (primary) hypertension; I25.10 Atherosclerotic heart disease of native coronary artery without angina pectoris; E03.9 Hypothyroidism, unspecified; K21.9 Gastro-esophageal reflux disease without esophagitis; E78.5 Hyperlipidemia, unspecified

== ENCOUNTER 2020-01-17 10:22 | Inpatient (IN) | payer MEDICARE, MEDICAID ==
[~2020-01-17] VITALS: Ht 167.6 cm; Wt 67.5 kg
[~2020-01-17 10:22] MED LIST changes: +ASPIRIN81 MG PO; +K-TAB10 MEQ PO; +LIPITOR10 MG PO; +LISINOPRIL10 MG PO; +PLAVIX75 MG PO
[2020-01-17 10:42] LABS: BILIRUBIN NEGATIVE (NEGATIVE); GLUCOSE NEGATIVE (NEGATIVE); KETONE MODERATE mg/dL (NEGATIVE); NITRITE NEGATIVE (NEGATIVE); UROBILINOGEN NORMAL (NORMAL)
[2020-01-17 10:43] LABS: BACTERIA FEW /hpf (NEGATIVE); RED CELLS - URINE RARE /hpf (0-5); WHITE CELLS - URINE RARE /hpf (NEGATIVE)
[2020-01-17 10:47] LABS: UDS - AMPHET NEGATIVE QUAL (NEGATIVE); UDS - BARB NEGATIVE QUAL (NEGATIVE); UDS - BENZO NEGATIVE QUAL (NEGATIVE); UDS - COCAINE NEGATIVE QUAL (NEGATIVE); UDS - OPIATE NEGATIVE QUAL (NEGATIVE); UDS - PCP NEGATIVE QUAL (NEGATIVE); UDS - THC NEGATIVE QUAL (NEGATIVE)
--- NOTE | 2020-01-17 12:15 | NUR ---
PT LAYING IN BED WITH EYES OPEN. RESPONDS WHEN SPOKEN TO.
[2020-01-17 12:43] LABS: HEMATOCRIT 44.3 % (36.0-48.0); HEMOGLOBIN 14.7 g/dL (12-16); LYMPHOCYTES 10.6 % (15-50); MCH 29.9 pg (26.0-34.0); MCHC 33.2 g/dL (31.0-37.0); MCV 90.2 fL (80.0-100.0); MEAN PLATELET VOLUME 11.9 fL (7.4-10.4); NEUTROPHILS 81.3 % (40-80); RBC 4.91 10x6/uL (4.00-5.40); RDW 12.9 % (11.5-14.5); WBC 10.3 10x3/uL (4.8-10.8)
[2020-01-17 12:45] LABS: PLATELET COUNT 128 10x3/uL (130-400)
[2020-01-17 12:51] LABS: CALC OSMOLALITY 275 mosm/kg (275-300); CALCIUM 9.1 mg/dL (8.5-10.1); CARBON DIOXIDE 26.6 mmol/L (21.0-32.0); CHLORIDE - SERUM 102 mmol/L (98-107); CREATININE - SERUM 1.2 mg/dL (0.6-1.3); GLUCOSE 112 mg/dL (74-106); POTASSIUM - SERUM 4.1 mmol/L (3.5-5.1); SODIUM 136 mmol/L (136-145); UREA NITROGEN 21 mg/dL (7-18); eGFR NON AFRICAN AMERICAN 46 mL/min (90-120)
[2020-01-17 12:57] LABS: APTT 27.2 SECONDS (22.8-39.4); INR 1.1 (0.85-1.17); PROTIME 14.1 SECONDS (11.6-15.0)
[2020-01-17 13:07] LABS: ALBUMIN 3.6 g/dL (3.4-5.0); ALKALINE PHOSPHATASE 100 U/L (30-120); ALT (SGPT) 32 U/L (10-68); CKMB 46.3 U/L (0.0-3.6); MAGNESIUM - SERUM 2.2 mg/dL (1.8-2.4); PROTEIN - SERUM 7.3 g/dL (6.4-8.2); THYROID STIMULATING HORMONE 0.06 uIU/mL (0.36-3.74); TROPONIN-I 0.042 ng/mL (0.000-0.060)
[2020-01-17 13:13] LABS: CREATINE KINASE 1732 UL (21-215)
--- NOTE | 2020-01-17 14:03 | NUR ---
PT LAYING IN BED. RESTNIG WITH EYES CLOSED. NO DISTRESS NOTED. WILL CONT TO MONITOR.
--- NOTE | 2020-01-17 14:45 | NUR ---
DR ROMAN AT BEDSIDE AT THIS TIME.
--- NOTE | 2020-01-17 15:15 | NUR ---
PERICARE PROVIDED. BRIEF CHANGED. YELLOW URINE NOTED TO BRIEF. PT REPOSITIONED IN BED FOR COMFORT. DENIES FURTHER NEEDS AT THIS TIME
--- NOTE | 2020-01-17 15:59 | NUR ---
PERICARE PROVIDED. BRIEF CHANGED AT THIS TIME. PT REPOSITIONED IN BED FOR COMFORT. DENIES FURTHER NEEDS AT THIS TIME. WILL CONTINUE TO MONITOR.
[2020-01-17 16:03] VITALS: BP 183/70
--- NOTE | 2020-01-17 17:41 | NUR ---
PT LAYING IN BED. RESPIRATIONS ARE EVEN AND UNLABORED. NO DISTRESS NOTED. COLOR WNL FOR RACE. WILL CONTINUE TO MONITOR
--- NOTE | 2020-01-17 17:41 | NUR ---
FAMILY MEMBER DAUGHTER IN LAW MARISA HOLT, LEFT AT THIS TIME. PHONE NUMBER IS [phone]
--- NOTE | 2020-01-17 18:14 | NUR ---
PERICARE PROVIDED AT THIS TIME. FRESH BRIEF PLACED ON PATIENT. PT SITTING UP IN BED EATING MEAL AT THIS TIME. NO DISTRESS NOTED. COLOR WNL FOR RACE. RESPIRATIONS ARE EVEN AND UNLABORED. WILL CONTINUE TO MONITOR.
[2020-01-17 18:15] VITALS: BP 163/62
--- NOTE | 2020-01-17 19:34 | NUR ---
BS 132, CAMRYN RESTING QUIETLY AT THIS TIME.
[2020-01-17 20:00] VITALS: BP 161/65
--- NOTE | 2020-01-17 22:00 | NUR ---
WAITING FOR ROOM ASSIGNMENT, PATIENT TALKING, SOME CONFUSION, FOLLOW SIMPLE COMMANDS,
--- NOTE | 2020-01-17 22:49 | NUR ---
CALLED REPORT TO SUKHDEEP LEYVA
--- NOTE | 2020-01-17 23:29 | NUR ---
RECIEVED REPORT FROM SUKHJINDER LEYVA IN ER AT 2243. ARRIVED TO FLOOR ON STRETCHER AT 2305. ALERT AND CONFUSED AT THIS TIME. DOES NOT KNOW HER MEDICATIONS . WILL CALL [facility] TO SEE IF THEY MAY KNOW HER MEDICATIONS. BRIGHT RED RASH TO LEFT GROIN AND LOWER ABDOMEN. ALSO, IN THE FOLD OF LT LEG. NYSTATIN POWDER PLACED IN AREA. VERY ODOROUS. IV TO LT AC WITH NS INFUSING AT 60CC/HR. INCONT OF BLADDER. DOES NOT KNOW HER MEDICATIONS AND UNSURE OF HER HISTORY AT THIS TIME. DENIES ANY NEEDS OR PAIN. WILL CONT OT ASSESS.
[2020-01-18] VITALS: BP 139/49
[2020-01-18 00:25] VITALS: BP 139/49; BMI 21.3
[2020-01-18 01:01] VITALS: BP 160/71
[2020-01-18 05:10] LABS: ANION GAP 13.7 mmol/L (8-16); CALCIUM 8.3 mg/dL (8.5-10.1); CARBON DIOXIDE 23.2 mmol/L (21.0-32.0); CREATININE - SERUM 1.2 mg/dL (0.6-1.3); POTASSIUM - SERUM 3.9 mmol/L (3.5-5.1)
[2020-01-18 05:17] LABS: BASOPHILS 0 % (0-2); EOSINOPHILS 0.6 % (0-7); HEMATOCRIT 40.4 % (36.0-48.0); HEMOGLOBIN 13.4 g/dL (12-16); IMMATURE GRANULOCYTES 0.1 % (0-5); LYMPHOCYTES 11.8 % (15-50); MCH 30.5 pg (26.0-34.0); MCHC 33.2 g/dL (31.0-37.0); MCV 91.8 fL (80.0-100.0); MEAN PLATELET VOLUME 12.4 fL (7.4-10.4); MONOCYTES 9.8 % (2-11); NEUTROPHILS 77.7 % (40-80); PLATELET COUNT 121 10x3/uL (130-400); RDW 12.8 % (11.5-14.5); WBC 8.8 10x3/uL (4.8-10.8)
[2020-01-18 09:00] VITALS: BP 117/69
--- NOTE | 2020-01-18 10:46 | NUR ---
AT NURSING STATION. NEW ORDERS RECEIVED ON PATIENT.
[2020-01-18 11:45] VITALS: Ht 167.6 cm; Wt 67.5 kg
[2020-01-18 12:25] LABS: CKMB 42.8 U/L (0.0-3.6)
[2020-01-18 12:31] LABS: CREATINE KINASE 2297 UL (21-215)
--- NOTE | 2020-01-18 13:24 | NUR ---
PT HAS BEEN ALERT AND CONFUSED. SPOKE TO FAMILY, CONFUSION IS NOT HER BASELINE. PT UP IN CHAIR, DOES NOT WANT TO GO BACK TO BED. CL IN REACH, SRX2.
--- NOTE | 2020-01-18 19:26 | NUR ---
RECIEVED UP IN CHAIR WITH EYES OPEN AND TV ON. ALERT AND ORIENTED AT THIS TIME. DOES HAVE PERIODS OF CONFUSION. IV TO LT AC SL. CHAIR ALARM IN PLACE. DENIES ANY NEEDS AT THIS TIOME.
[2020-01-18 20:28] VITALS: BP 115/42
[2020-01-19 05:00] VITALS: BP 158/53
[2020-01-19 05:33] LABS: HEMATOCRIT 36.9 % (36.0-48.0); HEMOGLOBIN 12.2 g/dL (12-16); LYMPHOCYTES 27.3 % (15-50); MCH 30.3 pg (26.0-34.0); MCHC 33.1 g/dL (31.0-37.0); MCV 91.8 fL (80.0-100.0); MEAN PLATELET VOLUME 12.5 fL (7.4-10.4); NEUTROPHILS 61.1 % (40-80); PLATELET COUNT 99 10x3/uL (130-400); RBC 4.02 10x6/uL (4.00-5.40); RDW 12.9 % (11.5-14.5)
[2020-01-19 05:34] LABS: WBC 5.9 10x3/uL (4.8-10.8)
[2020-01-19 05:53] LABS: ALBUMIN 2.6 g/dL (3.4-5.0); ALKALINE PHOSPHATASE 78 U/L (30-120); ALT (SGPT) 43 U/L (10-68); BILIRUBIN - TOTAL 0.53 mg/dL (0.2-1.3); CALC OSMOLALITY 281 mosm/kg (275-300); CALCIUM 8.1 mg/dL (8.5-10.1); CARBON DIOXIDE 24.2 mmol/L (21.0-32.0); CHLORIDE - SERUM 107 mmol/L (98-107); CKMB 14.3 U/L (0.0-3.6); CREATINE KINASE 921 UL (21-215); CREATININE - SERUM 1.1 mg/dL (0.6-1.3); GLUCOSE 120 mg/dL (74-106); PROTEIN - SERUM 5.7 g/dL (6.4-8.2); SODIUM 138 mmol/L (136-145); UREA NITROGEN 27 mg/dL (7-18); eGFR NON AFRICAN AMERICAN 51 mL/min (90-120)
[2020-01-19 10:06] VITALS: BP 197/82
[2020-01-19 12:45] VITALS: BP 115/52
--- NOTE | 2020-01-19 14:35 | NUR ---
PT ALERT AND CONFUSED THROUGHOUT THE DAY. NO LONGER TRYING TO WALK UNASSISTED, BUT STILL CONFUSED TO TIME AND SITUATION. NO VISITORS TODAY. CL INR EACH,S RX2.
--- NOTE | 2020-01-19 15:26 | NUR ---
I have reviewed this patient and I concur with the Shift Assessment completed by the Licensed Practical Nurse today this shift.
--- NOTE | 2020-01-19 17:50 | NUR ---
PT AWAKE AND ORIENTED, LYING IN BED. VISITED FOR A FEW HOURS. NO COMPLAINTS OR CONCERNS AT THIS TIME. CL IN REACH, SRX2.
[2020-01-19 18:06] VITALS: BP 129/64
--- NOTE | 2020-01-19 19:41 | NUR ---
RECIEVED UP IN BED WITH EYES OPEN AND TV ON. ALERT AND ORIENTED TO PERSON AND PLACE ONLY. UP TO B/R WITH ASSIST. RASH TO LT GROIN AREA AND LT LEG. IV TO LT AC SL. BED ALARM IN PLACE. DENIES ANY NEEDS AT THIS TIME.
[2020-01-19 21:30] VITALS: BP 146/69
--- NOTE | 2020-01-19 23:02 | NUR ---
CALLED SILVERIO SANDERS FOR CLARIFICATION ON NS ORDER. NEW ORDER FOR NS 125/HR CONT. PREVIOUS ORDER D/C'D. CPK FOR AM LAB DRAW. ALREADY AN ORDER TO DRAW IN A.M
[2020-01-20 05:15] LABS: HEMATOCRIT 36.8 % (36.0-48.0); HEMOGLOBIN 12.1 g/dL (12-16); LYMPHOCYTES 24.8 % (15-50); MCH 30.3 pg (26.0-34.0); MCHC 32.9 g/dL (31.0-37.0); MEAN PLATELET VOLUME 12.4 fL (7.4-10.4); NEUTROPHILS 65.3 % (40-80); PLATELET COUNT 111 10x3/uL (130-400); RDW 12.7 % (11.5-14.5)
[2020-01-20 05:31] LABS: ANION GAP 12.1 mmol/L (8-16); CALCIUM 8.1 mg/dL (8.5-10.1); CREATININE - SERUM 1.1 mg/dL (0.6-1.3); POTASSIUM - SERUM 4.1 mmol/L (3.5-5.1)
[2020-01-20 09:00] VITALS: BP 146/54
--- NOTE | 2020-01-20 10:18 | NUR ---
PT AWAKE AND OCNFUSED, PARTICIPATED WITH PHYSICAL THERAPY. NO COMPLAITNS OR CONCERNS, TOOK MEDDICATIONS WITHOUT DIFFICULTY. CL IN EACH, SRX2,
[2020-01-20 12:00] VITALS: BP 111/69
--- NOTE | 2020-01-20 14:07 | NUR ---
PT AWAKE AND CONFUSED, SITTING UP IN CHAIR. DAUGHTER IN LAW GAVE BATH. NO COMPLAINTS OR CONCERNS AT THIS TIME. CL IN REACH,S RX2.
[2020-01-20 15:00] VITALS: BP 117/63
--- NOTE | 2020-01-20 19:30 | NUR ---
REPORT RECIEVED AND ROUNDING COMPLETE. PATIENT SITTING IN BED SIDE CHAIR. DAUGHTER AT BEDSIDE WELL. DAUGHTER EXPRESSES CONCERN ABOUT HER MOTHER EATING DUE TO BEING CONFUSED AND NOT UNDERSTANDING THAT THE FOOD IN THE ROOM IS IN FACT HER FOOD TO EAT, DAUGHTER ASKING FOR MEAL ASSISTANCE TO SET UP TRAY AND ASKED THAT WE SET UP HER FOOD TRAY AND EXPLAIN THAT IT IS HERS TO EAT AND CHECK ON HER FROM TIME TO TIME DURING MEALS TO ENSURE SHE IS EATING. PATIENT HAS A LEFT WRIST PIV THAT IS SALINE LOCKED AND A RIGHT ELBOW SKIN TEAR THAT IS DRESSED AND C/D/I. NO S/SX OF DISTRESS NOTED CALL LIGHT WITHIN REACH. PATIENT HAS A CHAIR ALARM ON AND WORKING.
[2020-01-20 21:21] VITALS: BP 151/60
[2020-01-21 00:39] VITALS: BP 137/66
[2020-01-21 06:27] VITALS: BP 98/68
--- NOTE | 2020-01-21 07:00 | NUR ---
ROUNDING DONE WITH PATIENT SITTING IN MAGEN ON CHAIR ALARM. CONFUSED. ALL FALL PRECAUTIONS IN PLACE. CALL LIGHT IN USE. LEFT FA SEEN WITH SALINE LOCK. ON EP, LABS ARE WNL. ON ROOM. WHITE BORDER GUAZE SEEN TO RIGHT ELBOW, NO DATE. WILL REMOVE AND ASSESS SKIN THIS SHIFT.
[2020-01-21 07:29] LABS: CALC OSMOLALITY 280 mosm/kg (275-300); CALCIUM 8.7 mg/dL (8.5-10.1); CARBON DIOXIDE 25.1 mmol/L (21.0-32.0); CHLORIDE - SERUM 106 mmol/L (98-107); CKMB 5.9 U/L (0.0-3.6); CREATINE KINASE 303 UL (21-215); CREATININE - SERUM 1.1 mg/dL (0.6-1.3); GLUCOSE 108 mg/dL (74-106); SODIUM 139 mmol/L (136-145); UREA NITROGEN 18 mg/dL (7-18); eGFR NON AFRICAN AMERICAN 51 mL/min (90-120)
[2020-01-21 07:57] LABS: HEMATOCRIT 39.3 % (36.0-48.0); HEMOGLOBIN 12.7 g/dL (12-16); LYMPHOCYTES 24.9 % (15-50); MCH 29.5 pg (26.0-34.0); MCHC 32.3 g/dL (31.0-37.0); MCV 91.2 fL (80.0-100.0); MEAN PLATELET VOLUME 12.5 fL (7.4-10.4); NEUTROPHILS 61.4 % (40-80); PLATELET COUNT 115 10x3/uL (130-400); RBC 4.31 10x6/uL (4.00-5.40); RDW 12.9 % (11.5-14.5); WBC 5.8 10x3/uL (4.8-10.8)
[2020-01-21 08:22] VITALS: BP 123/69
--- NOTE | 2020-01-21 08:52 | NUR ---
CHAIR ALARM GOING OFF. PATIENT STANDING AND STARTING TO SLIDE DOWN TO FLOOR. CALLED FOR HELP I HELD PATIENT UP. BAIRON MARSH HERE TO ASSISTED ME WITH HER BACK TO CHAIR ON CHAIR ALARM.
--- NOTE | 2020-01-21 09:27 | NUR ---
ASSISTED BACK TO BED AND ESTHER ALARM IN USE. TALKING ON PHONE.
--- NOTE | 2020-01-21 10:29 | NUR ---
Nutrition Follow-up: Pt confused. Observed breakfast tray mostly untouched. Diet: Cardiac PO intake: 25-100% Wt: 132# (01/17) Labs noted: Glu 108 Meds noted: Protonix, Folate, electrolyte protocol -Encourage PO intake and honor food preferences within diet restrictions. -Offer nutrition supplements. -Need new wt; noted daily wts ordered. -RD following.
[2020-01-21 11:57] VITALS: BP 184/78
--- NOTE | 2020-01-21 13:12 | NUR ---
ASSSITED TO BEDSIDE COMMODE, URINATES ON FLOOR. CLEAN YELLOW GOWN, NON SKID SOCKS, AND DEPENDS PLACED ON PATIENT. YEASTY FOLDS SEEN UNDER BREASTS AND GROIN AREA. NYSTOP WAS PLACED ON THESE EARILER AND NOT DOCUMENTS IN NOTES PER THIS NURSE. ESTHER MAT ALARM ON AND IN PLACE ALONG WITH CALL LIGHT.
--- NOTE | 2020-01-21 14:50 | NUR ---
OT NOTE: PT PLEASANTLY CONFUSED..ATTEMPTED IN AM BUT PT DID NOT WANT TO PARTICIPATE. SHE STATED THAT SHE HAD ALREADY COOKED BREAKFAST AND IT WAS IN THE FRIDGE IF I WANTED SOMETHING TO EAT. (PT THINKS SHE IS AT HOME AT THIS TIME)...IN PM, PERFORMED BED MOB WITH MIN ASSIST. SIMPLE GROOMING TASKS WITH SET UP; RESISTANT TO AMB TO BATHROOM OR TRANSFER TO BS COMMODE SHE DID NOT NEED TO GO. NARESH PARRISH, OTR/L
--- NOTE | 2020-01-21 15:08 | CN ---
PATIENT NAME:JETT RAMIREZ MEDICAL RECORD: [id number] : 40 LOCATION:D.M2 D.2105 ADMIT DATE: 01/18/20 ACCOUNT: [id number] CONSULTING PHYSICIAN: STEPHANI SANTIAGO MD REFERRING PHYSICIAN: RAMSEY DUPREE MD DATE OF CONSULTATION: 01/20/2020 IDENTIFYING DATA: The patient is 79 years old and she is admitted to the hospital on a voluntary basis. CHIEF COMPLAINT: Confusion. HISTORY OF PRESENT ILLNESS: The patient apparently lives in [facility] and fell. She had some pain in her back and left side. She has a history of stroke, diabetes, hypertension and COPD. Apparently, she has had some hallucinations that she knows are not real. She has been seeing things outside her window, but no real agitation with this and she is not angry or frightened by what she has been seeing. ASSESSMENT: 1. Vascular dementia. 2. Delirium. PLAN: The patient at this time is not having hallucinations. I would like to just observe her symptoms and hope that they are not going to return. This may have been an isolated event. She does, however, have an underlying dementia and certainly is in need of 01-feiv-c-day supervision. She lives in a low income housing complex and she has a daughter who helps her, but I am unsure if this is sufficient. She does not have behaviors that would justify placing her on a behavioral unit. TRANSINT:[id number] Voice Confirmation ID: [id number] DOCUMENT ID: [id number] STEPHANI SANTIAGO MD at 1508 CC: [id number] DICTATION DATE: 01/20/20 1721 CLAIM ATTORNEY: 01/21/20 0008 ADM IN [facility] [address] [place] [place] [id number]
[2020-01-21 16:32] VITALS: BP 172/59
--- NOTE | 2020-01-21 17:24 | NUR ---
DRESSING TO RIGHT ARM REMOVED. SKIN TEAT SEEN. OPSITE PLACED AND DATED.
[2020-01-21 20:00] VITALS: BP 107/79
--- NOTE | 2020-01-21 20:01 | NUR ---
REPORT RECEIVED NA ROUNDING COMPLETE. PATIENT LAYING IN BED WATCH ING TV. ALERT AND PLEASENTLY CONFUSED. PATIENT HAS ALEFT FOREARM PIV THAT IS SALINE LOCKED AT THIS TIME. NO DISTRESS NOTED. CALL LIGHT WITHIN REACH AND BED IN LOWEST LOCKED POSITION.
--- NOTE | 2020-01-22 06:46 | NUR ---
GAVE PATIENT FULL BED BATH AND CHANGED ALL LINENS.
[2020-01-22 06:59] LABS: ANION GAP 11.8 mmol/L (8-16); CARBON DIOXIDE 24.9 mmol/L (21.0-32.0); POTASSIUM - SERUM 3.7 mmol/L (3.5-5.1)
[2020-01-22 07:26] LABS: HEMATOCRIT 39.8 % (36.0-48.0); LYMPHOCYTES 24.7 % (15-50); MCH 29.5 pg (26.0-34.0); MCHC 32.7 g/dL (31.0-37.0); MCV 90.5 fL (80.0-100.0); MEAN PLATELET VOLUME 12.3 fL (7.4-10.4); PLATELET COUNT 114 10x3/uL (130-400); RDW 12.6 % (11.5-14.5); WBC 5.5 10x3/uL (4.8-10.8)
--- NOTE | 2020-01-22 07:33 | NUR ---
AM ROUNDING DONE WITH PATIENT RESTING WITH EYES CLOSED ON BACK. ESTHER MAT ALARM ON AND IN USE. LEFT FA SEEN WITH SALINE LOCK. ON EP, LABS NORMAL. RIGHT ELBOW SKIN TEAR SEE WITH OPSITE DATED 01/21/20. ON ROOM AIR. CALL LIGHT AT SIDE.
--- NOTE | 2020-01-22 08:37 | NUR ---
OT NOTE: (DOS 01/21/2020) PT WAS FATIGUED. PT WAS CONFUSED. PT COMPLETED BUE AAROM WITH EXTENSIVE CUES. PT COMPLETED FACE WASH WITH MOD A WITH EXTENSIVE CUES. PT COMPLETED SIDE ROLLING WITH MIN/MOD A WITH EXTENSIVE CUES. PT IS COOPERATIVE BUT CONFUSED. 0-774 MICHELL DONALD COTA
[2020-01-22 09:00] VITALS: BP 125/77
--- NOTE | 2020-01-22 10:45 | NUR ---
PATIENT IS UP WITH THERAPY, PLACED IN CAHIR WITH CHAIR MAT ALARM ON AND IN USE.
--- NOTE | 2020-01-22 10:46 | MORECARE ---
CASE MANAGEMENT DISCHARGE SUMMARY PATIENT: JETT RAMIREZ UNIT: [id number] ADM DATE: 01/18/20 AGE: 79 : 40 SEX: F ROOM/BED: D.2101 AUTHOR: MIRELA DAVISON PHYSICIAN: REFERRING PHYSICIAN: RAMSEY DUPREE MD DATE OF SERVICE: 01/22/20 Discharge Plan Patient Name: JETT RAMIREZ Facility: [facility]:[place] : 1940 Planned Disposition: Fdc Facility Anticipated Discharge Date: 01/23/20 Discharge Date: Expected LOS: 5 Initial Reviewer: [email or web address] Initial Review Date: 01/17/2020 Generated: 01/22/20 11:45 am Comments DCP- Discharge Planning Updated by [email or web address]: Michelle Tompkins on 01/22/20 9:[address] PT/OT notes faxed to Mar[facility]. Plans for a SNF bed. Emergency contact: Don Castillo (son) [phone]. Patient lives at the [facility]. DME: eyad, emergency call button. Patient's dtr-in-law request a Skilled placement upon DC. [facility] Foster is working with [facility] for a SNF bed. External Providers External Provider: [facility] Next Contact Date: Service Request Date: Service Type: Resolution: Reviewer: Comments: Coverage Notice Reviewer: [email or web address] Ziggy Luu Notice Issued Date-Time: 01/17/2020 16:20 Notice Type: Medicare Outpatient Observation Notice Notice Delivered To: Patient Relationship to Patient: Systems Administration Analyst Name: Delivery Method: HAND - Hand Delivered Hortensia Days: Prior Verbal Notification: Recipient Understood Notice: Yes Recipient Signature: Yes Med Rec Note Co-signed by Attending: Coverage Notice Comment: millan delivered Patient Name: JETT RAMIREZ Page [id number] at 1046 All edits/amendments must be made on the electronic document DICTATION DATE: 01/22/20 1046 [employer] BOATMAN: MARILOU 01/22/20 1046 RPT#: [id number] DC DATE: STATUS: ADM IN [facility] [address] [place] [address] END OF REPORT
[2020-01-22 11:00] VITALS: BP 110/56
--- NOTE | 2020-01-22 11:28 | MORECARE ---
CASE MANAGEMENT DISCHARGE SUMMARY PATIENT: JETT RAMIREZ UNIT: [id number] ADM DATE: 01/18/20 AGE: 79 : 40 SEX: F ROOM/BED: D.2102 AUTHOR: MIRELA DAVISON PHYSICIAN: REFERRING PHYSICIAN: RAMSEY DUPREE MD DATE OF SERVICE: 01/22/20 Discharge Plan Patient Name: JETT RAMIREZ Facility: [facility]:[place] : 1940 Planned Disposition: Penitentiary Facility Anticipated Discharge Date: 01/23/20 Discharge Date: Expected LOS: 5 Initial Reviewer: [email or web address] Initial Review Date: 01/17/2020 Generated: 01/22/20 12:28 pm Comments DCP- Discharge Planning Updated by [email or web address]: Michelle Tompkins on 01/22/20 10:[address] DC Plan: Skilled facility pending insurance authorization. PT/OT notes faxed to [facility]. Plans for a SNF bed. Emergency contact: Don Castillo (son) [phone]. Patient lives at [facility]. DME: eyad, emergency call button. Patient's dtr-in-law request a Skilled placement upon DC. [facility] Fostre is working with [facility] for a SNF bed. Coverage Notice Reviewer: [email or web address] Ziggy Luu Notice Issued Date-Time: 01/17/2020 16:20 Notice Type: Medicare Outpatient Observation Notice Notice Delivered To: Patient Relationship to Patient: Senior Technical Writer Name: Delivery Method: HAND - Hand Delivered Hortensia Days: Prior Verbal Notification: Recipient Understood Notice: Yes Recipient Signature: Yes Med Rec Note Co-signed by Attending: Coverage Notice Comment: millan delivered Last DP export: 01/22/20 9:46 a Patient Name: JETT RAMIREZ Page 04276 at 1128 All edits/amendments must be made on the electronic document DICTATION DATE: 01/22/20 112 PROPELLER ENGINEER: MARILOU 01/22/20 1128 RPT#: [id number] DC DATE: STATUS: ADM IN [facility] [address] [place] [address] END OF REPORT
--- NOTE | 2020-01-22 14:29 | NUR ---
OT NOTE: PT PERFORMED BETTER TODAY. STILL CONFUSED BUT BETTER. SHE WAS ABLE TO REMEMBER THAT SHE HAD A BED BATH EARLY THIS AM ( CHECKED NURSING NOTES AND THIS WAS CORRECT). VERY CLEAR MEMORY OF WHERE SHE LIVED AND HER APT NUMBER, ETC.. AMB INTO HALLWAY FOR ENDURANCE APPROX 75 FT WITH CGA AND WALKER; TRANSFERRED TO CHAIR WITH MIN ASSIST; AMB TO BATHROOM WITH WALKER AND CGA; MIN ASSIST WITH TOILET HYGIENE; SET UP FOR WASHING FACE AND HANDS WITH WASH CLOTH. NARESH PARRISH, OTR/L
[2020-01-22 15:00] VITALS: BP 142/61
--- NOTE | 2020-01-22 15:32 | NUR ---
IN BED RESTING WITH EYES CLOSED. RESP EVEN. ESTHER MAT ALARM ON AND IN USE.
--- NOTE | 2020-01-22 15:52 | NUR ---
OT NOTE: PT COMPLETED SIT TO STAND WITH CGA/MIN A. PT COMPLETED ADL MOB WITH CGA. PT COMPLETED HYGIENE TASKS AT SINK LEVEL WITH CGA. PT IS CONFUSED AND REQUIRED MODERATED VERBAL CUES FOR ATTENTION TO TASKS. PT DID WELL. 2-101 MICHELL DONALD COTA
--- NOTE | 2020-01-22 17:57 | NUR ---
PATIENT HAS EATEN ALL OF HER BREAKFAST AND LUNCH.
--- NOTE | 2020-01-22 19:00 | NUR ---
REPORT RECEIVED, WILL CONTINUE POC. PATIENT IS ALERT BUT PLEASANTLY CONFUSED, SITTING UP IN CHAIR. NO S/S OF DISTRESS OBSERVED, RR EVEN AND UNLABORED ON ROOM AIR. PATIENT DENIES NEEDS AT THIS TIME. CL IN REACH, BED LOCKED AND LOWERED. ESTHER ALARM ON. WILL CTM.
[2020-01-22 20:00] VITALS: BP 130/53
[2020-01-23 04:00] VITALS: BP 140/50
[2020-01-23 05:27] LABS: ANION GAP 12.5 mmol/L (8-16); CALCIUM 9.3 mg/dL (8.5-10.1); CARBON DIOXIDE 25.4 mmol/L (21.0-32.0); MAGNESIUM - SERUM 2.2 mg/dL (1.8-2.4); POTASSIUM - SERUM 3.9 mmol/L (3.5-5.1)
[2020-01-23 05:28] LABS: CREATININE - SERUM 1.3 mg/dL (0.6-1.3)
[2020-01-23 05:51] LABS: HEMATOCRIT 40.1 % (36.0-48.0); HEMOGLOBIN 13.1 g/dL (12-16); LYMPHOCYTES 29.2 % (15-50); MCH 29.6 pg (26.0-34.0); MCHC 32.7 g/dL (31.0-37.0); MCV 90.7 fL (80.0-100.0); MEAN PLATELET VOLUME 12.3 fL (7.4-10.4); NEUTROPHILS 57.1 % (40-80); PLATELET COUNT 126 10x3/uL (130-400); RBC 4.42 10x6/uL (4.00-5.40); WBC 6.1 10x3/uL (4.8-10.8)
[2020-01-23 08:30] VITALS: BP 138/54
--- NOTE | 2020-01-23 11:14 | NUR ---
Nutrition Follow-up: Ate ~75% of breakfast this AM. Awaiting placement. Diet: Cardiac PO intake: 71% avg x last 4 meals No new wt; last wt: 132# (01/17) Last BM: 01/21 Labs noted: Glu 144 Meds noted: Humalog, Protonix, Folate, electrolyte protocol -Change to cardiac carb consistent diet. -Need new wt; noted daily wts ordered. -RD following.
[2020-01-23 12:00] VITALS: BP 121/55
--- NOTE | 2020-01-23 12:00 | NUR ---
PT SITTING IN CHAIR. ESTHER ALARM ON. PT STATES SHE AHS NO FURTHER NEEDS AT THIS TIME. CL IN REACH.
--- NOTE | 2020-01-23 12:51 | MORECARE ---
CASE MANAGEMENT DISCHARGE SUMMARY PATIENT: JETT RAMIREZ UNIT: [id number] ADM DATE: 01/18/20 AGE: 79 : 40 SEX: F ROOM/BED: D.2100 AUTHOR: MIRELA DAVISON PHYSICIAN: REFERRING PHYSICIAN: RAMSEY DUPREE MD DATE OF SERVICE: 01/23/20 Discharge Plan Patient Name: JETT RAMIREZ Facility: [facility]:[place] : 1940 Planned Disposition: [facility] Facility Anticipated Discharge Date: 01/23/20 Discharge Date: Expected LOS: 5 Initial Reviewer: [email or web address] Initial Review Date: 01/17/2020 Generated: 01/23/20 1:50 pm Comments DCP- Discharge Planning Updated by [id number]: Michelle Tompkins on 01/22/20 10:[address] DC Plan: Skilled facility pending insurance authorization. PT/OT notes faxed to [facility]. Plans for a SNF bed. Emergency contact: Don Castillo (son) [phone]. Patient lives at [facility]. DME: eyad, emergency call button. Patient's dtr-in-law request a Skilled placement upon DC. [facility]a Foster is working with [facility] for a SNF bed. Coverage Notice Reviewer: [id number] Ziggy Luu Notice Issued Date-Time: 01/17/2020 16:20 Notice Type: Medicare Outpatient Observation Notice Notice Delivered To: Patient Relationship to Patient: Maintenance Team Leader Name: Delivery Method: HAND - Hand Delivered Hortensia Days: Prior Verbal Notification: Recipient Understood Notice: Yes Recipient Signature: Yes Med Rec Note Co-signed by Attending: Coverage Notice Comment: millan delivered Last DP export: 01/22/20 10:28 a Patient Name: JETT RAMIREZ Page 87759 at 1251 All edits/amendments must be made on the electronic document DICTATION DATE: 01/23/20 1250 WORKERS' COMPENSATION MAGISTRATE: MARILOU 01/23/20 1250 RPT#: [id number] DC DATE: STATUS: ADM IN [facility] [address] [place] [address] END OF REPORT
--- NOTE | 2020-01-23 12:59 | MORECARE ---
CASE MANAGEMENT DISCHARGE SUMMARY PATIENT: JETT RAMIREZ UNIT: [id number] ADM DATE: 01/18/20 AGE: 79 : 40 SEX: F ROOM/BED: D.2105 AUTHOR: LANEY,DOC PHYSICIAN: REFERRING PHYSICIAN: RAMSEY DUPREE MD DATE OF SERVICE: 01/23/20 Discharge Plan Patient Name: JETT RAMIREZ Facility: [facility]:[place] : 1940 Planned Disposition: Assisted Facility Anticipated Discharge Date: 01/23/20 Discharge Date: Expected LOS: 5 Initial Reviewer: [email or web address] Initial Review Date: 01/17/2020 Generated: 01/23/20 1:58 pm DCP- Discharge Planning Updated by [id number]: Michelle Tompkins on 01/22/20 10:[address] DC Plan: Skilled facility pending insurance authorization. PT/OT notes faxed to [facility]. Plans for a SNF bed. Emergency contact: Don Castillo (son) [phone]. Patient lives at the [facility], [facility] [place]. DME: eyad, emergency call button. Patient's dtr-in-law request a Skilled placement upon DC. Marcella Foster is working with [facility] for a SNF bed. DCPIA - Discharge Planning Initial Assessment Updated by [id number]: Michelle Tompkins on 01/23/20 12:55 pm * Is the patient Alert and Oriented? Yes * How many steps to enter\exit or inside your home? * PCP Dr. Ceja * Pharmacy [facility], with delivery * Preadmission Environment Home Alone * ADLs Independent * Equipment Walker * Other Equipment Emergency call light on the wall * List name and contact numbers for known caregivers / representatives who currently or will assist patient after discharge: Don Castillo son) [phone] * Verbal permission to speak to the caregivers and representatives has been obtained from the patient. Yes * Community resources currently utilized None * Please name any agencies selected above. NA * Additional services required to return to the preadmission environment? Yes * Can the patient safely return to the preadmission environment? No * Has this patient been hospitalized within the prior 30 days at any hospital? No Coverage Notice Reviewer: [id number] Ziggy Luu Notice Issued Date-Time: 01/17/2020 16:20 Notice Type: Medicare Outpatient Observation Notice Notice Delivered To: Patient Relationship to Patient: Gravity Prospecting Observer Helper Name: Delivery Method: HAND - Hand Delivered Hortensia Days: Prior Verbal Notification: Recipient Understood Notice: Yes Recipient Signature: Yes Med Rec Note Co-signed by Attending: Coverage Notice Comment: millan delivered Last DP export: 01/23/20 11:51 a Patient Name: JETT RAMIREZ Page 92476 at 1259 All edits/amendments must be made on the electronic document DICTATION DATE: 01/23/20 125 RN ENDOSCOPY: MARILOU 01/23/20 1259 RPT#: [id number] DC DATE: STATUS: ADM IN [facility] [address] [place] [address] END OF REPORT
--- NOTE | 2020-01-23 14:26 | MORECARE ---
CASE MANAGEMENT DISCHARGE SUMMARY PATIENT: JETT RAMIREZ UNIT: [id number] ADM DATE: 01/18/20 AGE: 79 : 40 SEX: F ROOM/BED: D.2105 AUTHOR: LANEY,DOC PHYSICIAN: REFERRING PHYSICIAN: RAMSEY DUPREE MD DATE OF SERVICE: 01/23/20 Discharge Plan Patient Name: JETT RAMIREZ Facility: [facility]:[place] : 1940 Planned Disposition: Care Home Facility Anticipated Discharge Date: 01/23/20 Discharge Date: Expected LOS: 5 Initial Reviewer: [email or web address] Initial Review Date: 01/17/2020 Generated: 01/23/20 3:25 pm DCP- Discharge Planning Updated by [id number]: Michelle Tompkins on 01/22/20 10:[address] DC Plan: Skilled facility pending insurance authorization. PT/OT notes faxed to [facility]. Plans for a SNF bed. Emergency contact: Don Castillo (son) [phone]. Patient lives at the [facility], [facility]. DME: eyad, emergency call button. Patient's dtr-in-law request a Skilled placement upon DC. Marcella Foster is working with [facility] for a SNF bed. DCPIA - Discharge Planning Initial Assessment Updated by [id number]: Michelle Tompkins on 01/23/20 12:55 pm * Is the patient Alert and Oriented? Yes * How many steps to enter\exit or inside your home? * PCP Dr. Ceja * Pharmacy [facility], with delivery * Preadmission Environment Home Alone * ADLs Independent * Equipment Walker * Other Equipment Emergency call light on the wall * List name and contact numbers for known caregivers / representatives who currently or will assist patient after discharge: Don Castillo son) [phone] * Verbal permission to speak to the caregivers and representatives has been obtained from the patient. Yes * Community resources currently utilized None * Please name any agencies selected above. NA * Additional services required to return to the preadmission environment? Yes * Can the patient safely return to the preadmission environment? No * Has this patient been hospitalized within the prior 30 days at any hospital? No Coverage Notice Reviewer: [id number] Ziggy Luu Notice Issued Date-Time: 01/17/2020 16:20 Notice Type: Medicare Outpatient Observation Notice Notice Delivered To: Patient Relationship to Patient: Marketing Services Vice President Name: Delivery Method: HAND - Hand Delivered Hortensia Days: Prior Verbal Notification: Recipient Understood Notice: Yes Recipient Signature: Yes Med Rec Note Co-signed by Attending: Coverage Notice Comment: millan delivered Last DP export: 01/23/20 11:59 a Patient Name: JETT RAMIREZ Page 11771 at 1426 All edits/amendments must be made on the electronic document DICTATION DATE: 01/23/20 1425 NUT PROCESS HELPER: MARILOU 01/23/20 1425 RPT#: [id number] DC DATE: STATUS: ADM IN [facility] [address] [place] [address] END OF REPORT
--- NOTE | 2020-01-23 18:24 | NUR ---
I have reviewed this patient and I concur with the Shift Assessment completed by the Licensed Practical Nurse today this shift.
--- NOTE | 2020-01-23 18:42 | NUR ---
OT NOTE: PT COMPLETED EOB SITTING WITH SBA.PT COMPLETED SIT TO STAND WITH CGA. PT COMPLETED ADL MOB WITH CGA. PT COMPLETED HAIR GROOMING WITH SETUP IN CHAIR. PT REQUIRED EXTENSIVE VERBAL CUES FOR SEQUENCING AND SAFETY. 2-460 THANK YOU,ILA LEONARD
[2020-01-23 20:00] VITALS: BP 143/56
--- NOTE | 2020-01-24 03:06 | NUR ---
I have reviewed this patient and I concur with the Shift Assessment completed by the Licensed Practical Nurse today this shift.
[2020-01-24 04:00] VITALS: BP 119/73
--- NOTE | 2020-01-24 04:49 | NUR ---
PT ARLENERING OUT BEFORE HELPING UP TO THE BSC NOTED IV WAS OUT CATH INTACT
[2020-01-24 05:01] LABS: HEMATOCRIT 38.7 % (36.0-48.0); HEMOGLOBIN 12.6 g/dL (12-16); LYMPHOCYTES 33.5 % (15-50); MCH 29.6 pg (26.0-34.0); MCHC 32.6 g/dL (31.0-37.0); MCV 91.1 fL (80.0-100.0); MEAN PLATELET VOLUME 11.9 fL (7.4-10.4); NEUTROPHILS 52.5 % (40-80); PLATELET COUNT 126 10x3/uL (130-400); RBC 4.25 10x6/uL (4.00-5.40); RDW 12.8 % (11.5-14.5); WBC 5.8 10x3/uL (4.8-10.8)
--- NOTE | 2020-01-24 05:10 | NUR ---
RESTARTED 22 GA TO RT UPPER ARM
[2020-01-24 05:11] LABS: ANION GAP 13.6 mmol/L (8-16); CALCIUM 8.9 mg/dL (8.5-10.1); CARBON DIOXIDE 23.4 mmol/L (21.0-32.0); CREATININE - SERUM 1.1 mg/dL (0.6-1.3); MAGNESIUM - SERUM 2.2 mg/dL (1.8-2.4)
[2020-01-24 08:00] VITALS: BP 148/83
--- NOTE | 2020-01-24 09:20 | NUR ---
PT AMBULATED FROM BED TO HALLWAY TO RECLINER CHAIR WITH X2 PHYSICAL THERAPISTS AND USING A WALKER. ESTHER CHAIR ALARM ON. CL IN REACH.
--- NOTE | 2020-01-24 10:21 | NUR ---
OT NOTE: PT PLEASANTLY CONFUSED TODAY. A AND O X 1; BED MOB WITH MIN ASSIST; ABLE TO WASH FACE AND HANDS AND CHEST WITH WASHCLOTH AND SET UP; AMB TO TOILET WITH WALKER AND MIN ASSIST; MOD ASSIST WITH TOILET HYGIENE DUE TO DIFFICULTY BALANCING ON HIGH TOILET. ABLE TO PULL UP BRIEFS WITH MIN ASSIST FOR BALANCE; AMB INTO HALLWAY GREATER THAN 120 FT TO IMPROVE FUNCTIONAL ENDURANCE. NARESH PARRISH, OTR/L [phone]
--- NOTE | 2020-01-24 12:23 | NUR ---
CALLED REPORT TO SUKHJINDER BOLAÑOS AT [facility].
--- NOTE | 2020-01-24 12:33 | NUR ---
PT DRESSED AND READY TO GO NH. LEFT UPPER ARM 22G IV DC'D WITH CATH INTACT. PT NOT WEARING TELEMETRY. PT CONFUSED AND UNABLE TO SIGN DC PAPERS.
--- NOTE | 2020-01-24 12:41 | MORECARE ---
CASE MANAGEMENT DISCHARGE SUMMARY PATIENT: JETT RAMIREZ UNIT: [id number] ADM DATE: 01/18/20 AGE: 79 : 40 SEX: F ROOM/BED: D.2105 AUTHOR: LANEY,DOC PHYSICIAN: REFERRING PHYSICIAN: RAMSEY DUPREE MD DATE OF SERVICE: 01/24/20 Discharge Plan Patient Name: JETT RAMIREZ Facility: [facility]:[place] : 1940 Planned Disposition: Snf Facility Anticipated Discharge Date: 01/23/20 Discharge Date: Expected LOS: 5 Initial Reviewer: [id number] Initial Review Date: 01/17/2020 Generated: 01/24/20 1:40 pm Comments DCP- Discharge Planning Updated by [id number]: Michelle Tompkins on 01/24/20 11:[address] Patient is discharging to [facility] to a SNF bed, today. DCP- Discharge Planning Updated by [email or web address]: Michelle Tompkins on 01/22/20 10:[address] DC Plan: Skilled facility pending insurance authorization. PT/OT notes faxed to [facility]. Plans for a SNF bed. Emergency contact: Don Castillo (son) [phone]. Patient lives at the [facility], [facility]. DME: walker, emergency call button. Patient's dtr-in-law request a Skilled placement upon DC. [facility]cella Foster is working with [facility] for a SNF bed. DCPIA - Discharge Planning Initial Assessment Updated by [id number]: Michelle Tompkins on 01/23/20 12:55 pm * Is the patient Alert and Oriented? Yes * How many steps to enter\exit or inside your home? * PCP Dr. Ceja * Pharmacy [facility], with delivery * Preadmission Environment Home Alone * ADLs Independent * Equipment Walker * Other Equipment Emergency call light on the wall * List name and contact numbers for known caregivers / representatives who currently or will assist patient after discharge: Don Castillo son) [phone] * Verbal permission to speak to the caregivers and representatives has been obtained from the patient. Yes * Community resources currently utilized None * Please name any agencies selected above. NA * Additional services required to return to the preadmission environment? Yes * Can the patient safely return to the preadmission environment? No * Has this patient been hospitalized within the prior 30 days at any hospital? No Coverage Notice Reviewer: [id number] Ziggy Luu Notice Issued Date-Time: 01/17/2020 16:20 Notice Type: Medicare Outpatient Observation Notice Notice Delivered To: Patient Relationship to Patient: Curriculum And Instruction Director Name: Delivery Method: HAND - Hand Delivered Hortensia Days: Prior Verbal Notification: Recipient Understood Notice: Yes Recipient Signature: Yes Med Rec Note Co-signed by Attending: Coverage Notice Comment: millan delivered Last DP export: 01/23/20 1:26 p Patient Name: JETT RAMIREZ Page 34983 at 1241 All edits/amendments must be made on the electronic document DICTATION DATE: 01/24/20 1240 CARDIAC MONITOR: MARILOU 01/24/20 1240 RPT#: [id number] DC DATE: STATUS: ADM IN [facility] [address] [place] [address] END OF REPORT
--- NOTE | 2020-01-24 13:14 | MORECARE ---
CASE MANAGEMENT DISCHARGE SUMMARY PATIENT: JETT HUTTON UNIT: [id number] ADM DATE: 01/18/20 AGE: 79 : 40 SEX: F ROOM/BED: D.2105 AUTHOR: LANEY,DOC PHYSICIAN: REFERRING PHYSICIAN: RAMSEY DUPREE MD DATE OF SERVICE: 01/24/20 Discharge Plan Patient Name: JETT HUTTON Facility: [facility]:[place] : 1940 Planned Disposition: Longterm Facility Anticipated Discharge Date: 01/23/20 Discharge Date: Expected LOS: 5 Initial Reviewer: [id number] Initial Review Date: 01/17/2020 Generated: 01/24/20 2:13 pm Comments DCP- Discharge Planning Updated by [email or web address]: Michelle Tompkins on 01/24/20 12:[address] Patient is discharging to [facility] to a SNF bed, today. CM faxed dc orders, med list to [facility]. Patient is aware of facility she is going to. Patient's son notified as well. DCP- Discharge Planning Updated by [email or web address]: Michelle Tompkins on 01/22/20 10:[address] DC Plan: Skilled facility pending insurance authorization. PT/OT notes faxed to [facility]. Plans for a SNF bed. Emergency contact: Don Castillo (son) [phone]. Patient lives at the [facility], [place]. DME: walker, emergency call button. Patient's dtr-in-law request a Skilled placement upon DC. [facility]cella Foster is working with [facility] for a SNF bed. DCPIA - Discharge Planning Initial Assessment Updated by [id number]: Michelle Tompkins on 01/23/20 12:55 pm * Is the patient Alert and Oriented? Yes * How many steps to enter\exit or inside your home? * PCP Dr. Ceja * Pharmacy [facility], with delivery * Preadmission Environment Home Alone * ADLs Independent * Equipment Walker * Other Equipment Emergency call light on the wall * List name and contact numbers for known caregivers / representatives who currently or will assist patient after discharge: Don Castillo son) [phone] * Verbal permission to speak to the caregivers and representatives has been obtained from the patient. Yes * Community resources currently utilized None * Please name any agencies selected above. NA * Additional services required to return to the preadmission environment? Yes * Can the patient safely return to the preadmission environment? No * Has this patient been hospitalized within the prior 30 days at any hospital? No Coverage Notice Reviewer: [id number] Ziggy LoboYomaira Edds Notice Issued Date-Time: 01/17/2020 16:20 Notice Type: Medicare Outpatient Observation Notice Notice Delivered To: Patient Relationship to Patient: Web Coordinator Name: Delivery Method: HAND - Hand Delivered Hortensia Days: Prior Verbal Notification: Recipient Understood Notice: Yes Recipient Signature: Yes Med Rec Note Co-signed by Attending: Coverage Notice Comment: millan delivered Reviewer: [id number] Ziggy Tompkins Notice Issued Date-Time: 01/24/2020 12:37 Notice Type: IM Discharge Notice Notice Delivered To: Patient Relationship to Patient: Self Web Coordinator Name: Jett Hutton Delivery Method: HAND - Hand Delivered Hortensia Days: Prior Verbal Notification: Recipient Understood Notice: Yes Recipient Signature: Yes Med Rec Note Co-signed by Attending: Coverage Notice Comment: DC IMM signed by patient, declines copy. Original to chart. Reviewer: [id number] Ziggy Tompkins Notice Issued Date-Time: 01/22/2020 12:37 Notice Type: Patient Choice Letter Notice Delivered To: Patient Relationship to Patient: Self Web Coordinator Name: Jett Hutton Delivery Method: - Hortensia Days: Prior Verbal Notification: Recipient Understood Notice: Recipient Signature: Med Rec Note Co-signed by Attending: Coverage Notice Comment: Last DP export: 01/24/20 11:41 a Patient Name: JETT HUTTON Page [id number] at 1314 All edits/amendments must be made on the electronic document DICTATION DATE: 01/24/20 1313 DINKEY DRIVER: MARILOU 01/24/20 1313 RPT#: [id number] DC DATE: STATUS: ADM IN [facility] [address] [place] [address] END OF REPORT
--- NOTE | 2020-01-24 14:27 | NUR ---
PT LEFT WITH [employer].
--- NOTE | 2020-01-24 16:23 | MORECARE ---
CASE MANAGEMENT DISCHARGE SUMMARY PATIENT: JETT HUTTON UNIT: [id number] ADM DATE: 01/18/20 AGE: 79 : 40 SEX: F ROOM/BED: D.7222 AUTHOR: LANEY,DOC PHYSICIAN: REFERRING PHYSICIAN: RAMSEY DUPREE MD DATE OF SERVICE: 01/24/20 Discharge Plan Patient Name: JETT HUTTON Facility: [facility]:[place] : 1940 Planned Disposition: Mcfp Facility Anticipated Discharge Date: 01/23/20 Discharge Date: 01/24/2020 Expected LOS: 5 Initial Reviewer: [id number] Initial Review Date: 01/17/2020 Generated: 01/24/20 5:23 pm Comments DCP- Discharge Planning Updated by [email or web address]: Michelle Tompkins on 01/24/20 3:[address] Patient is discharging to [facility] to a SNF bed, today. CM explained that this is for Rehab purposes. CM faxed dc orders, med list to [facility]. Patient is aware of facility she is going to. Attempted to notify patient's son, but cannot get the call to go through. Dtr-in-law, Liya ([phone]) came by ad was notified of patient's DC to [facility]. DCP- Discharge Planning Updated by [id number]: Michelle Tompkins on 01/22/20 10:[address] DC Plan: Skilled facility pending insurance authorization. PT/OT notes faxed to [facility]. Plans for a SNF bed. Emergency contact: Don Castillo (son) [phone]. Patient lives at the [facility], [facility]. DME: eyad, emergency call button. Patient's dtr-in-law request a Skilled placement upon DC. [facility]a Foster is working with [facility] for a SNF bed. DCPIA - Discharge Planning Initial Assessment Updated by [id number]: Michelle Tompkins on 01/23/20 12:55 pm * Is the patient Alert and Oriented? Yes * How many steps to enter\exit or inside your home? * PCP Dr. Ceja * Pharmacy [facility], with delivery * Preadmission Environment Home Alone * ADLs Independent * Equipment Walker * Other Equipment Emergency call light on the wall * List name and contact numbers for known caregivers / representatives who currently or will assist patient after discharge: Don Castillo son) [phone] * Verbal permission to speak to the caregivers and representatives has been obtained from the patient. Yes * Community resources currently utilized None * Please name any agencies selected above. NA * Additional services required to return to the preadmission environment? Yes * Can the patient safely return to the preadmission environment? No * Has this patient been hospitalized within the prior 30 days at any hospital? No Coverage Notice Reviewer: [id number] Ziggy Luu Notice Issued Date-Time: 01/17/2020 16:20 Notice Type: Medicare Outpatient Observation Notice Notice Delivered To: Patient Relationship to Patient: Retail Loan Originator Name: Delivery Method: HAND - Hand Delivered Hortensia Days: Prior Verbal Notification: Recipient Understood Notice: Yes Recipient Signature: Yes Med Rec Note Co-signed by Attending: Coverage Notice Comment: millan delivered Reviewer: [id number] Ziggy Tompkins Notice Issued Date-Time: 01/24/2020 12:37 Notice Type: IM Discharge Notice Notice Delivered To: Patient Relationship to Patient: Self Retail Loan Originator Name: Jett Hutton Delivery Method: HAND - Hand Delivered Hortensia Days: Prior Verbal Notification: Recipient Understood Notice: Yes Recipient Signature: Yes Med Rec Note Co-signed by Attending: Coverage Notice Comment: DC IMM signed by patient, declines copy. Original to chart. Reviewer: [id number] Ziggy Tompkins Notice Issued Date-Time: 01/22/2020 12:37 Notice Type: Patient Choice Letter Notice Delivered To: Patient Relationship to Patient: Self Retail Loan Originator Name: Jett Hutton Delivery Method: - Hortensia Days: Prior Verbal Notification: Recipient Understood Notice: Recipient Signature: Med Rec Note Co-signed by Attending: Coverage Notice Comment: Last DP export: 01/24/20 12:14 p Patient Name: JETT HUTTON Page [phone] at 1623 All edits/amendments must be made on the electronic document DICTATION DATE: 01/24/201622 CRAYON MOLDING MACHINE OPERATOR: MARILOU 01/24/20 1623 RPT#: [id number] DC DATE:01/24/20 STATUS: DIS IN [place] [id number] [facility] [address] END OF REPORT
--- NOTE | 2020-01-24 16:31 | MORECARE ---
CASE MANAGEMENT DISCHARGE SUMMARY PATIENT: JETT HUTTON UNIT: [id number] ADM DATE: 01/18/20 AGE: 79 : 40 SEX: F ROOM/BED: D.2104 AUTHOR: LANEY,DOC PHYSICIAN: REFERRING PHYSICIAN: RAMSEY DUPREE MD DATE OF SERVICE: 01/24/20 Discharge Plan Patient Name: JETT HUTTON Facility: [facility]:[place] : 1940 Planned Disposition: [facility] Facility Anticipated Discharge Date: 01/23/20 Discharge Date: 01/24/2020 Expected LOS: 5 Initial Reviewer: [id number] Initial Review Date: 01/17/2020 Generated: 01/24/20 5:31 pm Comments DCP- Discharge Planning Updated by [email or web address]: Michelle Tompkins on 01/24/20 3:[address] Patient is discharging to [facility] to a SNF bed, today. CM explained that this is for Rehab purposes and she agrees. CM faxed dc orders, med list to [facility]. Patient is aware of facility she is going to. Attempted to notify patient's son, but cannot get the call to go through. Dtr-in-law, Liya ([phone]) came by ad was notified of patient's DC to [facility]. CM attempted to reach admissions, in order to apply Liya's number to the patient's contact, but no answer. 01/22 late: The patient's son, Don called to inquire about how the SNF placement is going. CM explained that several NH's in do not have the capability of accepting the patient. Son states that he is in agreement to go outside of , for rehab. DCP- Discharge Planning Updated by [id number]: Michelle Tompkins on 01/22/20 10:[address] DC Plan: Skilled facility pending insurance authorization. PT/OT notes faxed to [facility]. Plans for a SNF bed. Emergency contact: Don Castillo (son) [phone]. Patient [facility], [facility]. DME: eyad, emergency call button. Patient's dtr-in-law request a Skilled placement upon DC. [facility] is working with [facility] for a SNF bed. DCPIA - Discharge Planning Initial Assessment Updated by [email or web address]: Michelle Tompkins on 01/23/20 12:55 pm * Is the patient Alert and Oriented? Yes * How many steps to enter\exit or inside your home? * PCP Dr. Ceja * Pharmacy [facility], with delivery * Preadmission Environment Home Alone * ADLs Independent * Equipment Walker * Other Equipment Emergency call light on the wall * List name and contact numbers for known caregivers / representatives who currently or will assist patient after discharge: Don Castillo son) [phone] * Verbal permission to speak to the caregivers and representatives has been obtained from the patient. Yes * Community resources currently utilized None * Please name any agencies selected above. NA * Additional services required to return to the preadmission environment? Yes * Can the patient safely return to the preadmission environment? No * Has this patient been hospitalized within the prior 30 days at any hospital? No Coverage Notice Reviewer: [id number] - Michelle Tompkins Notice Issued Date-Time: 01/22/2020 12:37 Notice Type: Patient Choice Letter Notice Delivered To: Patient Relationship to Patient: Self A Class Lineman Name: Jett Hutton Delivery Method: - Hortensia Days: Prior Verbal Notification: Recipient Understood Notice: Recipient Signature: Med Rec Note Co-signed by Attending: Coverage Notice Comment: Reviewer: [id number] - Michelle Tompkins Notice Issued Date-Time: 01/24/2020 12:37 Notice Type: IM Discharge Notice Notice Delivered To: Patient Relationship to Patient: Self A Class Lineman Name: Jett Hutton Delivery Method: HAND - Hand Delivered Hortensia Days: Prior Verbal Notification: Recipient Understood Notice: Yes Recipient Signature: Yes Med Rec Note Co-signed by Attending: Coverage Notice Comment: DC IMM signed by patient, declines copy. Original to chart. Reviewer: [id number] - Yomaira Luu Notice Issued Date-Time: 01/17/2020 16:20 Notice Type: Medicare Outpatient Observation Notice Notice Delivered To: Patient Relationship to Patient: A Class Lineman Name: Delivery Method: HAND - Hand Delivered Hortensia Days: Prior Verbal Notification: Recipient Understood Notice: Yes Recipient Signature: Yes Med Rec Note Co-signed by Attending: Coverage Notice Comment: millan delivered Last DP export: 01/24/20 3:23 p Patient Name: JETT HUTTON Page [id number] at 1631 All edits/amendments must be made on the electronic document DICTATION DATE: 01/24/201630 GERMAN PROFESSOR: MARILOU 01/24/20 163 RPT#: [id number] DC DATE:01/24/20 STATUS: DIS IN [facility] [address] [place] [address] END OF REPORT
--- NOTE | 2020-01-24 17:00 | NUR ---
OT NOTE: PT COMPLETED SITTING BALANCE WITH SBA. PT COMPLETED UB HYGIENE TASKS WITH MIN A. PT REQUIRED MOD CUES FOR TASK COMPLETION. [id number] THANK YOU,ILA LEONARD
[2020-01-26 15:09] LABS: AEROBE ID Preliminary report (())
== END 2020-01-24 14:27 | DRG 557 ==
LOC: D.ER 10:22 → D.EDHOLD 13:36 → OBSVTIME 13:36 → D.MS 13:36 → D.EDHOLD 13:54 → D.M2 22:00
PROVIDERS: Family Medicine; ADMIT Family Medicine Adult Medicine; ATTEND Family Medicine Adult Medicine
DX: M62.82 Rhabdomyolysis (principal); G93.41 Metabolic encephalopathy; F05 Delirium due to known physiological condition; W18.30XA Fall on same level, unspecified, initial encounter; E86.0 Dehydration; E03.9 Hypothyroidism, unspecified; I10 Essential (primary) hypertension; E11.65 Type 2 diabetes mellitus with hyperglycemia; I25.10 Atherosclerotic heart disease of native coronary artery without angina pectoris; J44.9 Chronic obstructive pulmonary disease, unspecified; F41.8 Other specified anxiety disorders; R13.10 Dysphagia, unspecified; F01.50 Vascular dementia, unspecified severity, without behavioral disturbance, psychotic disturbance, mood disturbance, and anxiety; I69.319 Unspecified symptoms and signs involving cognitive functions following cerebral infarction